=== PATIENT | female | born 1965 | race Caucasian/White ===

== ENCOUNTER 2021-11-12 11:12 | Outpatient (CLI) | payer OTHER, SELFPAY ==
[2021-11-12 12:26] LABS: Hematocrit 41.6 % (37-47); Mean Corp Hgb Conc 33.7 g/dL (32-36); Mean Corpuscular Hgb 32.4 pg (27.0-32.0); Mean Corpuscular Volume 96.3 fL (81-99); Mean Platelet Vol. 10.3 fl (6.2-12.0); Platelet Count 290 K/mm3 (150-450); RBC Distribution Width CV 12.6 % (11.6-14.6); RBC Distribution Width SD 44.9 fl (35.1-43.9); Red Blood Count 4.32 M/mm3 (4.2-5.4); White Blood Count 4.9 K/mm3 (4.4-11.0)
[2021-11-12 12:51] LABS: Vitamin D,25 Hydroxy 45.4 ng/mL
[2021-11-12 12:58] LABS: ALB/GLOB Ratio 1.2 RATIO (0.9-2.4); AST(SGOT) 16 U/L (15-37); Alanine Aminotransfer ALT/SGPT 21 U/L (13-56); Albumin, Serum 4.1 g/dL (3.2-5.0); Alkaline Phosphatase 82 U/L (45-117); Anion Gap 5 (5-15); BUN 14 mg/dL (7-18); BUN/Creat Ratio 17.4 RATIO (10-20); Chloride 106 mmol/L (98-107); Cholesterol 204 mg/dL (200); Creatinine, Serum 0.81 mg/dL (0.55-1.02); EST Glomerular Filtration Rate 78 mL/min (>60); Est Glom Filt Rate - Afr Amer 94 mL/min (>60); Globulin 3.4 g/dL (2.2-4.2); Glucose 88 mg/dL (74-106); High Density Lipoprotein 75 mg/dL; Potassium 3.5 mmol/L (3.5-5.1); Protein, Total 7.5 g/dL (6.4-8.2); Sodium Level 141 mmol/L (136-145); T4 Free Direct 1.32 ng/dL (0.76-1.46); Thyroid Stim Hormone (TSH) 6.09 uIU/mL (0.358-3.74); Triglycerides 119 mg/dL; Very Low Density Lipoprotein 24 mg/dL (5-40)
[2021-11-15 09:32] LABS: Free T3 2.1 pg/mL (2.18-3.98)
== END 2021-11-12 23:59 | disposition home or self-care (01) ==
LOC: MFPLAB 11:15
PROVIDERS: PCP Family Medicine; Referring Provider Family Medicine; Visit Provider Family Medicine
DX: I25.10 Atherosclerotic heart disease of native coronary artery without angina pectoris (principal); E03.9 Hypothyroidism, unspecified; E55.9 Vitamin D deficiency, unspecified
CPT/HCPCS: 36415; 80053; 80061; 82306; 84439; 84443; 84481; 85027

== ENCOUNTER → 2022-01-09 | Outpatient (CLI) | payer OTHER, SELFPAY ==
[2022-01-09 15:29] LABS: Free T3 2.2 pg/mL (2.18-3.98); T4 Free Direct 1.24 ng/dL (0.76-1.46); Thyroid Stim Hormone (TSH) 8.65 uIU/mL (0.358-3.74)
== END | disposition home or self-care (01) ==
LOC: MFPLAB 11:37
PROVIDERS: PCP Family Medicine; Referring Provider Family Medicine; Visit Provider Family Medicine
DX: I25.10 Atherosclerotic heart disease of native coronary artery without angina pectoris (principal); E03.9 Hypothyroidism, unspecified; E55.9 Vitamin D deficiency, unspecified
CPT/HCPCS: 36415; 84439; 84443; 84481

== ENCOUNTER → 2022-05-21 | Outpatient (CLI) | payer OTHER, SELFPAY ==
[2022-05-21 14:04] LABS: Mucous, Urine 0 SEEN /hpf (<or=2+); Red Blood Cells-Urine 0 SEEN /hpf (0-5); Squamous Epithelial Cells - UA 0 SEEN /hpf (5-10); White Blood Cells 0 SEEN /hpf (0-5)
[2022-05-21 15:40] LABS: Color, Urine Straw (Yellow); Glucose, Dipstick Normal (Normal); Ketone-Dipstick Negative (Negative); Leukocyte Esterase-Dipstick Negative /ul (Negative); Nitrite-Dipstick Negative (Negative); Occult Blood-Urine 10 /ul (Negative); Protein-Dipstick Negative (Negative); Urine Bilirubin Dipstick Negative (Negative); Urine Clarity Clear (Clear); Urine Urobilinogen Normal (Normal); Urine pH 6.5 (5.0 - 8.0)
[2022-05-21 15:57] LABS: Free T3 2.5 pg/mL (2.18-3.98); Thyroid Stim Hormone (TSH) 0.81 uIU/mL (0.358-3.74)
[2022-05-21 16:03] LABS: Bacteria RARE /hpf (None Seen)
== END | disposition home or self-care (01) ==
LOC: MFPLAB 12:08
PROVIDERS: PCP Family Medicine; Visit Provider Family Medicine
DX: R31.9 Hematuria, unspecified (principal); E03.9 Hypothyroidism, unspecified
CPT/HCPCS: 36415; 81001; 84439; 84443; 84481; 87086; 87088

== ENCOUNTER → 2022-06-16 | Outpatient (CLI) | payer OTHER, SELFPAY ==
[2022-06-23 14:49] LABS: HPV APTIMA, High Risk Negative (Negative)
[2022-06-23 14:50] LABS: HPV Reflexed? YES, CHARGE PATIENT
== END | disposition home or self-care (01) ==
LOC: LABSPEC 15:13
PROVIDERS: PCP Family Medicine; Visit Provider Nurse Practitioner Family
DX: Z12.4 Encounter for screening for malignant neoplasm of cervix (principal)
CPT/HCPCS: 87624; 88175; G0145

== ENCOUNTER → 2022-08-13 | Outpatient (CLI) | payer OTHER, SELFPAY ==
--- NOTE | 2022-08-13 08:53 | BI_ITS ---
MAMMOGRAPHY - BILATERAL SCREENING REASON FOR EXAM: Female, 57 years old. Routine annual screening examination. PERTINENT HISTORY: Sister with breast cancer. TECHNIQUE: Digital bilateral breast lavern (3D mammographic acquisition) in the CC and MLO projections. 2-D mediolateral oblique (MLO) and craniocaudad (CC) views of both breasts were obtained. CAD: Full Field Digital Mammography with Computer Added Detection was performed. COMPARISON: Bilateral screening mammogram from outside hospital from 10/11/2019. Left breast diagnostic mammogram from 06/06/2020. FINDINGS: Breast Composition: The breasts are heterogeneously dense, which may obscure small masses. There are no dominant masses or suspicious calcifications. No other significant abnormalities are identified. BI/SCRN MAMM (CAD)W/LAVERN BILAT IMPRESSION: Negative screening mammogram. Yearly followup mammogram recommended. (A) ASSESSMENT CATEGORY: BIRADS Category 1: Negative. A letter regarding these results will be sent to the patient by the facility within 30 days. Approximately 10% of breast cancers are not detected by mammography. A normal mammogram should not delay biopsy of a clinically suspicious abnormality. Electronically Signed: Chris Verde, at 14:37 EST ,
== END | disposition home or self-care (01) ==
LOC: OPBI 08:51
PROVIDERS: PCP Family Medicine; Visit Provider Family Medicine
DX: Z12.31 Encounter for screening mammogram for malignant neoplasm of breast (principal); Z80.3 Family history of malignant neoplasm of breast
CPT/HCPCS: 77063; 77067

== ENCOUNTER → 2022-12-05 | Outpatient (CLI) | payer OTHER, SELFPAY ==
[2022-12-05 10:31] LABS: BNP,B-Type NATRIURETIC PEPTIDE 26.6 pg/mL (0-100)
[2022-12-05 10:41] LABS: ALB/GLOB Ratio 1.2 RATIO (0.9-2.4); AST(SGOT) 15 U/L (15-37); Alanine Aminotransfer ALT/SGPT 26 U/L (13-56); Albumin, Serum 3.9 g/dL (3.2-5.0); Alkaline Phosphatase 96 U/L (45-117); Anion Gap 9 (5-15); BUN 23 mg/dL (7-18); BUN/Creat Ratio 32.5 RATIO (10-20); Calcium,Total 9.4 mg/dL (8.5-10.1); Chloride 106 mmol/L (98-107); Cholesterol 244 mg/dL (200); Creatinine, Serum 0.71 mg/dL (0.55-1.02); EST Glomerular Filtration Rate 90 mL/min (>60); Est Glom Filt Rate - Afr Amer 109 mL/min (>60); Globulin 3.3 g/dL (2.2-4.2); Glucose 95 mg/dL (74-106); High Density Lipoprotein 72 mg/dL; Potassium 3.6 mmol/L (3.5-5.1); Protein, Total 7.2 g/dL (6.4-8.2); Sodium Level 140 mmol/L (136-145); T4 Free Direct 1.37 ng/dL (0.76-1.46); Thyroid Stim Hormone (TSH) 1.58 uIU/mL (0.358-3.74); Triglycerides 68 mg/dL; Very Low Density Lipoprotein 14 mg/dL (5-40)
== END | disposition home or self-care (01) ==
LOC: MFPLAB 08:10
PROVIDERS: PCP Family Medicine; Referring Provider Family Medicine; Visit Provider Family Medicine
DX: E78.5 Hyperlipidemia, unspecified (principal); R06.09 Other forms of dyspnea; E03.9 Hypothyroidism, unspecified
CPT/HCPCS: 36415; 80053; 80061; 83880; 84439; 84443

== ENCOUNTER → 2022-12-30 | Outpatient (CLI) | payer OTHER, SELFPAY ==
--- NOTE | 2022-12-30 12:37 | STRESSREP_ITS ---
Stress Test Report Date: 12/30/2022 Procedure: Exercise tolerance test/imaging study Indications: Dyspnea on exertion Consent: Per the patient Procedure: The patient exercised on a Garcia protocol for 6 minutes and 10 seconds achieving a peak heart rate of 133 bpm (82% predicted maximal heart rate) with a peak blood pressure 174/9 mmHg and a peak MET capacity of 7.5 METs. The baseline ECG demonstrated normal sinus rhythm. The peak exercise ECG demonstrated no ischemic changes. There were no cardiac dysrhythmias pretest, during exercise, or recovery. The functional capacity was considered suboptimal. There was complaint of chest tightness at peak exercise. The examination was discontinued secondary to target heart rate being achieved. The patient was injected with 11.7 mCi of technetium 99m Cardiolite and subsequently rest SPECT Cardiolite nuclear imaging was obtained in the horizontal long, vertical long, and short axis views. Post-exercise, the patient was injected with 32.6 mCi of technetium 99m Cardiolite and subsequently stress SPECT Cardiolite nuclear imaging was obtained in the horizontal long, vertical long, and short axis views. A gated Cardiolite study at peak stress was obtained. Rest and stress SPECT Cardiolite nuclear imaging status post realignment, normalization, and attenuation correction, demonstrates very small area of mildly decreased perfusion poststress. There is end systolic thickening and brightening. The gated Cardiolite study demonstrates myocardial thickening and inward wall motion. The reported LVEF is 69%. Impression: 1. 82% of maximum predicted heart rate achieved. 2. Peak exercise ECG no ischemic changes 3. There were no cardiac dysrhythmias pretest, during exercise, or recovery 4. Rest and stress SPECT Cardiolite nuclear imaging demonstrate small area of mildly decreased tracer uptake at the apex post exercise suggestive of mild ischemia. 5. The gated Cardiolite study reports an LVEF of 69%. This note was generated with [employer] software. It may contain incorrect words, spelling, and punctuation that were not noted in checking the note before signing.
== END | disposition home or self-care (01) ==
PROVIDERS: PCP Family Medicine; Referring Provider Family Medicine; Visit Provider Family Medicine
DX: R06.09 Other forms of dyspnea (principal)
CPT/HCPCS: 78452; 93017; A9500; A4216

== ENCOUNTER → 2023-01-13 | Outpatient (CLI) | payer OTHER, SELFPAY ==
--- NOTE | 2023-01-13 10:49 | ECHOD_ITS ---
Reason For Study: CAD/ASHD Procedure This was a 2D Doppler, Color Flow transthoracic echocardiogram. Exam performed in department. Left Ventricle Normal LV size. The left ventricular ejection fraction is 55 %. Diastolic function is indeterminate. No regional wall motion abnormalities noted. Right Ventricle Normal RV size. Normal systolic function. Atria The left and right atria are normal. Mitral Valve Mild focal mitral valve calcification of the posterior leaflet. Moderate (2+) mitral valve insufficiency. Tricuspid Valve Normal tricuspid valve. Pulmonary artery systolic pressure is 43 mmHg. Moderately severe (3+) tricuspid valve insufficiency. Aortic Valve Mild focal aortic valve calcification. There is no aortic stenosis. Mild (1+) aortic valve insufficiency. Pulmonic Valve The pulmonic valve is not well visualized. Great Vessels Normal aortic root. Pericardium/Pleural No pericardial effusion. MMode/2D Measurements & Calculations LVIDd: 4.7 cm IVSd: 0.91 cm Ao root diam: 3.5 cm LVIDs: 3.2 cm LVPWd: 1.0 cm RVDd: 3.9 cm FS: 32.9 % LAV(MOD-bp): 47.9 ml LVAd ap4: 25.6 cm2 SV(MOD-sp4): 45.2 ml LAV(MOD-bp) Indexed: 25.1 ml/m2 LVLd ap4: 6.8 cm LAV(MOD-sp2): 49.8 ml EDV(MOD-sp4): 78.7 ml LAV(MOD-sp4): 46.8 ml EDV(sp4-el): 80.9 ml LVAs ap4: 14.9 cm2 LVLs ap4: 5.6 cm ESV(MOD-sp4): 33.5 ml ESV(sp4-el): 33.8 ml EF(MOD-sp4): 57.5 % EF(sp4-el): 58.3 % SV(sp4-el): 47.2 ml LA A4 area: 16.9 cm2 LA dimension(2D): 3.7 cm RA A4 area: 14.5 cm2 Time Measurements MV dec time: 0.12 sec Doppler Measurements & Calculations MV E max haja: 79.6 cm/sec Lat Peak E' Haja: 8.2 cm/sec Med Peak E' Haja: 5.6 cm/sec MV A max haja: 75.3 cm/sec E/E' lat: 9.7 E/E' med: 14.1 MV E/A: 1.1 MV V2 max: 86.2 cm/sec Ao V2 max: 138.5 cm/sec MV max P.0 mmHg MV dec slope: 663.6 cm/sec2 Ao max P.7 mmHg MV V2 mean: 42.5 cm/sec Ao V2 mean: 95.8 cm/sec MV mean P.96 mmHg Ao mean P.1 mmHg MV V2 VTI: 32.3 cm Ao V2 VTI: 34.5 cm AV (velocity ratio): 0.74 LV V1 max: 101.6 cm/sec TR max haja: 314.4 cm/sec LV V1 max P.1 mmHg TR max P.5 mmHg LV V1 mean P.4 mmHg LV V1 mean: 72.8 cm/sec LV V1 VTI: 25.6 cm ECHO/Echo Complete Interpretation Summary The left ventricular ejection fraction is 55 %. Moderate (2+) mitral valve insufficiency. Moderately severe (3+) tricuspid valve insufficiency. Pulmonary artery systolic pressure is 43 mmHg. Mild (1+) aortic valve insufficiency. Ordering Physician: Елена Bhat Referring Physician: Елена Bhat Performed By: Kenia Pereyra RCS
== END | disposition home or self-care (01) ==
PROVIDERS: PCP Family Medicine; Referring Provider Internal Medicine Cardiovascular Disease; Visit Provider Internal Medicine Cardiovascular Disease
DX: I25.10 Atherosclerotic heart disease of native coronary artery without angina pectoris (principal); Z95.5 Presence of coronary angioplasty implant and graft; I10 Essential (primary) hypertension
CPT/HCPCS: 93306

== ENCOUNTER 2023-05-11 11:35 | Observation (INO) | payer OTHER, SELFPAY ==
[2023-04-06 09:37] VITALS: BMI 29.8
--- NOTE | 2023-04-06 10:25 | RAD_ITS ---
INDICATION: SOB, CP -- for heart cath EXAMINATION/TECHNIQUE: X-RAY - XR Chest 2 Views COMPARISON: FINDINGS: LINES/DEVICES: None. LUNGS: No consolidation, edema or effusion. No pneumothorax. MEDIASTINUM AND CARDIOVASCULAR STRUCTURES: Cardiac silhouette not enlarged. Central airways and mediastinal contour are unremarkable. BONES AND SOFT TISSUES: Unremarkable. RAD/Chest PA and Lateral IMPRESSION: No radiographic evidence of acute cardiopulmonary disease. Electronically Signed: Wero Holcomb, at 10:48 EDT ,
[2023-04-06 10:57] LABS: Hematocrit 40.3 % (37-47); Hemoglobin 13.5 g/dL (12.0-15.0); Mean Corp Hgb Conc 33.5 g/dL (32-36); Mean Corpuscular Volume 95.5 fL (81-99); Mean Platelet Vol. 10.4 fl (6.2-12.0); Platelet Count 278 K/mm3 (150-450); RBC Distribution Width CV 13.1 % (11.6-14.6); RBC Distribution Width SD 45.8 fl (35.1-43.9); Red Blood Count 4.22 M/mm3 (4.2-5.4)
[2023-04-06 11:03] LABS: Prothrombin Time (Protime)PT. 12.7 SECONDS (11.7-14.9)
[2023-04-06 11:04] LABS: Partial Thromboplast Time 30.5 Seconds (24.1-36.2)
[2023-04-06 11:19] LABS: Anion Gap 2 (5-15); BUN 19 mg/dL (7-18); Calcium,Total 9.4 mg/dL (8.5-10.1); Chloride 109 mmol/L (98-107); Creatinine, Serum 0.73 mg/dL (0.55-1.02); EST Glomerular Filtration Rate 87 mL/min (>60); Est Glom Filt Rate - Afr Amer 105 mL/min (>60); Estimated Creatinine Clearance 78.64 ml/min; Glucose 103 mg/dL (74-106); Potassium 3.6 mmol/L (3.5-5.1); Sodium Level 140 mmol/L (136-145)
--- NOTE | 2023-05-08 08:26 | HP.PCM_ITS ---
History and Physical Date of Admission: 05/11/23 This is a 57 year old female who presents to the cardiac [facility] for a cardiac catheterization. She has a history of coronary artery disease with stent placement in 2004, hypertension, and hyperlipidemia. She does acknowledge angina, and shortness of breath with exertion. Her stress test from December of this year demonstrated a small area of mildly decreased tracer uptake at the apex post exercise suggestive of mild ischemia. Intake Vital Signs See EMR Allergies See EMR Medications See EMR Ejection fraction %: 55 to 59 PFSH Medical History Abnormal stress test Atherosclerotic heart disease of [place] coronary artery without angina pectoris Essential hypertension Hypothyroidism Mixed hyperlipidemia Non-rheumatic aortic regurgitation Non-rheumatic mitral regurgitation Non-rheumatic tricuspid valve insufficiency Presence of stent in coronary artery (~06/21/05) SOB (shortness of breath) Surgical History Presence of coronary angioplasty implant and graft (~06/21/05) Family History Mother CAD (coronary artery disease)Father CAD (coronary artery disease)Sister CAD (coronary artery disease) Social History Smoking Status: Never smoker alcohol intake: never substance use type: does not use caffeine: Yes Type: coffee Number of servings: 2 ROS Const Const: Positive for daytime sleepiness, difficulty sleeping and other; Negative for fatigue, weakness, headache(s), frequent falls or excessive sweating Eyes Eyes: Positive for blurry vision (floaties and change in peripheral vision ); Negative for loss of peripheral vision, transient loss of vision, double vision or tunnel vision ENT ENT: Negative for headache(s), dizziness, Nosebleed/epistaxis or balance problems Cardio Chest Pain: No Palpitations: No Edema: Bilateral (hands and ankles) Muscle aches with walking: None Resp Respiratory: Positive for SOB with activity (better but still there); Negative for SOB at rest, SOB orthopnea\SOB lying down, Cough or paroxysmal nocturnal dyspnea GI GI: Positive for heartburn (increased); Negative nausea, vomiting or black,tarry stools : Negative for hematuria Musc Musc: Positive for joint pain (a lot); Negative for muscle aches/ myalgia, muscle weakness or balance problems Skin Skin: Negative non-healing lesions, rash or unusual bruising Neuro Neuro: Positive for blurry vision (floaties and change in peripheral vision ); Negative for dizziness, lightheadedness, near syncope, syncope, frequent falls, headache(s), weakness, double vision or lack of coordination Ralph Hematologic/Lymphatic: Negative for easy bleeding or easy bruising Endo Endo: Negative for fatigue, excessive sweating or increased thirst/drinking Psych Psych: Negative for anxiety or depression Allergy Allergy/Immunology: Negative for hives and Negative for rash Cardiology Exam Const Appearance: comfortable and no acute distress Nutritional Appearance: well nourished Neck Neck: no JVD Carotids: Negative bruit Chest Auscultation: Bilateral: Clear to Auscultation Cardio Rate: regular rate Rhythm: regular rhythm Heart sounds: S1 normal, S2 normal and murmur (2/6 systolic murmur at base) Neuro General: patient alert, patient awake and patient oriented x3 Extremities Lower Extremity Edema: None: Bilateral Supplemental Info Supplemental Information ECHOCARDIOGRAM 01/13/23 Interpretation Summary The left ventricular ejection fraction is 55 %. Moderate (2+) mitral valve insufficiency. Moderately severe (3+) tricuspid valve insufficiency. Pulmonary artery systolic pressure is 43 mmHg. Mild (1+) aortic valve insufficiency. ? ? Stress Test Report: Date: 12/30/2022 Procedure: Exercise tolerance test/imaging study ? Indications: Dyspnea on exertion ? Consent: Per the patient ? Procedure: ? The patient exercised on a Garcia protocol for 6 minutes and 10 seconds achieving a peak heart rate of 133 bpm (82% predicted maximal heart rate) with a peak blood pressure 174/9 mmHg and a peak MET capacity of 7.5 METs. ? The baseline ECG demonstrated normal sinus rhythm.? The peak exercise ECG demonstrated no ischemic changes. ? There were no cardiac dysrhythmias pretest, during exercise, or recovery.? ? The functional capacity was considered suboptimal. ? There was complaint of chest tightness at peak exercise. ? The examination was discontinued secondary to target heart rate being achieved. ? The patient was injected with 11.7 mCi of technetium 99m Cardiolite and subsequently rest SPECT Cardiolite nuclear imaging was obtained in the horizontal long, vertical long, and short axis views. Post-exercise, the patient was injected with 32.6 mCi of technetium 99m Cardiolite and subsequently stress SPECT Cardiolite nuclear imaging was obtained in the horizontal long, vertical long, and short axis views.? A gated Cardiolite study at peak stress was obtained. ? Rest and stress SPECT Cardiolite nuclear imaging status post realignment, normalization, and attenuation correction, demonstrates very small area of mildly decreased perfusion poststress.? There is end systolic thickening and brightening.? The gated Cardiolite study demonstrates myocardial thickening and inward wall motion.? The reported LVEF is 69%. ? Impression: ? 1.? 82% of maximum predicted heart rate achieved. 2.? Peak exercise ECG no ischemic changes 3.? There were no cardiac dysrhythmias pretest, during exercise, or recovery 4.? Rest and stress SPECT Cardiolite nuclear imaging demonstrate small area of mildly decreased tracer uptake at the apex post exercise suggestive of mild ischemia. 5.? The gated Cardiolite study reports an LVEF of 69%. ? 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 Her stress test from 12/2022 was abnormal. With her history of coronary artery disease, will proceed with cardiac catheterization to further assess this. Depending on results, further recommendations will be made. (2) Presence of stent in coronary artery: Status: Acute Comment: PCI/MELVIN to mid and Proximal RCA @ [facility] 06/21/05 Plan: See #1 above. (3) Coronary artery disease: Status: Chronic Plan: History of inferior MO. See #1 and 2 above.
[2023-05-08 10:20] LABS: Hematocrit 42.1 % (37-47); Mean Corp Hgb Conc 33.3 g/dL (32-36); Mean Corpuscular Volume 96.3 fL (81-99); Mean Platelet Vol. 10.4 fl (6.2-12.0); Platelet Count 263 K/mm3 (150-450); RBC Distribution Width SD 45.8 fl (35.1-43.9); Red Blood Count 4.37 M/mm3 (4.2-5.4); White Blood Count 4.8 K/mm3 (4.4-11.0)
[2023-05-08 10:59] LABS: AST(SGOT) 14 U/L (15-37); Alanine Aminotransfer ALT/SGPT 23 U/L (13-56); Albumin, Serum 3.8 g/dL (3.2-5.0); Alkaline Phosphatase 72 U/L (45-117); Anion Gap 5 (5-15); BUN 20 mg/dL (7-18); BUN/Creat Ratio 26.4 RATIO (10-20); Bilirubin, Direct 0.13 mg/dL (0.00-0.30); Calcium,Total 9.4 mg/dL (8.5-10.1); Chloride 109 mmol/L (98-107); Cholesterol 155 mg/dL (200); Creatinine, Serum 0.76 mg/dL (0.55-1.02); EST Glomerular Filtration Rate 83 mL/min (>60); Est Glom Filt Rate - Afr Amer 101 mL/min (>60); Estimated Creatinine Clearance 75.53 ml/min; Globulin 3.2 g/dL (2.2-4.2); Glucose 93 mg/dL (74-106); High Density Lipoprotein 70 mg/dL; Potassium 3.5 mmol/L (3.5-5.1); Sodium Level 140 mmol/L (136-145); Triglycerides 72 mg/dL; Very Low Density Lipoprotein 14 mg/dL (5-40)
[2023-05-08 11:07] LABS: T4 Free Direct 1.54 ng/dL (0.76-1.46); Thyroid Stim Hormone (TSH) 0.29 uIU/mL (0.358-3.74)
[2023-05-11] VITALS (17 sets, daily range): BP systolic 108–164; BP diastolic 67–100; PULSE 54–78; RESP 16–18; TEMP 36.6–36.8; O2SAT 96–100
--- NOTE | 2023-05-11 11:42 | PCM.DC ---
Discharge Instructions Diet Discharge Diet: Low fat / Low cholesterol Activity Discharge Activity: No Restrictions Dressing / Incision Call your doctor if your incision/area has: Continuous Slow Oozing, Sudden Increased Bleeding, Increased Pain/ Swelling, Increased Redness, Foul Smelling Discharge and Swelling at the incision site Call your doctor if you observe: Fever of 101 or Higher, Coldness, Increased Pain and Change in Color Follow Up Care Please Follow Up With: Елена Bhat MD When: 2 weeks Test Results: Test results from this visit will be discussed in further detail at your follow-up appointment, if applicable. Discharge Plan Admission Attending Provider: Елена Bhat Primary Care Provider: Juan F Tay Discharge Orders/Prescriptions Prescriptions: New clopidogrel 75 mg Tablet 75 mg PO DAILY Qty: 90 3RF Continued levothyroxine 100 mcg tablet 100 mcg PO DAILY hydrochlorothiazide 25 mg tablet 25 mg PO DAILY amlodipine 10 mg tablet 10 mg PO DAILY lisinopril 10 mg tablet 10 mg PO DAILY naproxen 500 mg tablet 500 mg PO BID fluticasone propionate [Flonase Allergy Relief] 50 mcg/actuation spray,suspension 2 spray intranasal BID Rx Instructions: administer into each nostril aspirin [Adult Low Dose Aspirin] 81 mg tablet,delayed release (DR/EC) 81 mg PO DAILY magnesium oxide 500 mg capsule 500 mg PO DAILY black cohosh 200 mg capsule 200 mg PO DAILY cholecalciferol (vitamin D3) 50 mcg (2,000 unit) tablet 50 mcg PO DAILY metoprolol tartrate 100 mg tablet 100 mg PO BID Qty: 180 3RF nitroglycerin 0.4 mg tablet, sublingual 0.4 mg sublingual Q5-15M PRN (Reason: chest pain) Qty: 25 1RF Rx Instructions: do not exceed 3 doses per episode atorvastatin 20 mg tablet 20 mg PO QHS Qty: 90 3RF Praluent Pen 150 mg/mL pen injector See Rx Instructions .ROUTE .COMPLEX Qty: 2 12RF Dose Instruction: INJECT 150 MG SUBCUTANEOUSLY EVERY 4 WEEKS Rx Instructions: INJECT 150 MG SUBCUTANEOUSLY EVERY 4 WEEKS Referrals / Follow Up: Juan F Tay MD [Primary Care Provider] - Disposition Disposition (needs filled in before D/C Order can be placed): Home, Self Care
--- NOTE | 2023-05-11 12:02 | CL.I_ITS ---
Patient Name: AUTUMN VAZQUEZ Study Date: 05/11/2023 Performing: Елена Bhat MD Ht: 66 inches 167.64 cm : 1965 Wt: 185.2 lbs 83.91 kg Age: 57 Gender: female BSA: 1.93 PROCEDURE(S) PERFORMED DC02-(36978)LHC/COR IC12-(98392/C9600)MELVIN W/WO PTCA, SINGLE CORONARY ARTERY CLINICAL PROFILE AND CO-MORBIDITIES Indications: Worsening Angina Heart Failure: None Stress/Imaging Stress Test w/SPECT MPI: Yes Result: Positive Intermediate Risk Stress Test with SPECT MPI: Positive Intermediate Risk CAD Presentations: Other: Dyspnea - angina equivalent CONCLUSIONS 95% Prox RCA ISR, 90% Mid RCA ISR, 50% distal RCA ISR 80% distal OM1 - small 2.0 mm vessel 70% Prox OM2, small 1.5 mm vessel 50% Calcific Prox and Mid LAD Successful PTCA/MELVIN Mid RCA ISR using Resolute Medina 3.0x22 mm Successful PTCA/MELVIN ISR Prox RCA using Resolute Medina 3.0x12 mm RECOMMENDATIONS ASA Indefinitley Plavix for at least 12 months DESCRIPTION OF PROCEDURE The patient arrived to the procedure lab. The risks and benefits of the procedure as well as a full description of our services here and lack of surgical backup were fully explained to the patient and/or their significant other prior to the catheterization. The Timeout was completed, verifying the correct patient and procedure. The patient's procedural site was prepped and draped in the usual fashion. Local anesthetic was given subcutaneously to right radial region with Lidocaine 2%. Using a modified Seldinger technique, arterial access was obtained via the right radial artery, a 6Fr sheath was inserted.. Left Coronary Artery selective angiography was performed in multiple views using a 5 Fr. 4.0 Matlock catheter. Right Coronary Artery selective angiography was then performed in multiple views using a 5 Fr. 4.0 Matlock catheterThe images were reviewed and options discussed. A decision was then made to proceed with an Intervention, IVUS or other adjunct procedure. JR 4 SH Guide catheter was inserted and engaged into the RCA. Runthrough Guide wire was advanced to the RCA. 2.5 x 15 Euphora SC Balloon catheter was inserted. Balloon catheter was advanced across lesion in the right coronary, mid. PTCA balloon inflated at 10 atms for 10 secs. Balloon catheter was repositioned to additional lesion in the right coronary, proximal. PTCA balloon inflated at 8 atms for 10 secs. PTCA balloon inflated at 16 atms for 30 secs. 3.0 x 22 Redby Drug Eluting stent was inserted. Drug Eluting stent was advanced across the lesion in the right coronary, mid. Drug Eluting stent was removed intact, failed to cross lesion 2.5 x 12 NC Euphora Balloon catheter was inserted. Balloon catheter was advanced across lesion in the right coronary, mid. 2.5 x 12 NC Euphora Balloon catheter was reinserted CHOICE EXTRA SUPPORT Guide wire was inserted as a aleksandr wire 2.5 X 12 EUPHORA Balloon catheter was advanced across lesion in the right coronary, mid. PTCA balloon inflated at 10 atms for 7 secs. PTCA balloon inflated at 10 atms for 7 secs. PTCA balloon inflated at 12 atms for 12 secs. PTCA balloon inflated at 14 atms for 11 secs. PTCA balloon inflated at 14 atms for 17 secs. 2.5 X 12 NC EUPHORA Balloon catheter was advanced across lesion in the right coronary, mid. PTCA balloon inflated at 18 atms for 15 secs. PTCA balloon inflated at 20 atms for 22 secs. 3.0 X 22 MEDINA Drug Eluting stent was advanced across the lesion in the right coronary, mid. 3 X 12 NC EUPHORA Balloon catheter was inserted post stent. 3.0 X 12 RESOLUTE MEDINA Drug Eluting stent was advanced across the lesion in the right coronary, PROX. Angiogram performed pre stent deployment. Angiogram performed post stent deployment. 3 X 12 NC EUPHORA Balloon catheter was inserted post stent. Angiogram performed post stent deployment. The arterial sheath was pulled and a TR Band was applied for hemostasis. 10cc air inserted.0 CORONARY ANGIOGRAPHY DOMINANCE: Right Dominant LEFT ANTERIOR DESCENDING ARTERY: LAD: Calcified 50% Proximal lesion in LAD Calcified 50% Mid lesion in LAD CIRCUMFLEX ARTERY: CIRCUMFLEX: Calcified 20% Mid lesion in Circumflex OM 1: Tubular 80% Mid lesion in 1st OM OM 2: Tubular 70% Proximal lesion in 2nd OM RIGHT CORONARY ARTERY: RCA: In-Stent Restenosis 95% Proximal lesion in RCA, STENT to 95% In-Stent Restenosis 90% Mid lesion in RCA INTERVENTION INFORMATION LESION SITE: RCA (Mid) Lesion Complexity: High/C, lesion length: 20 mm, In-stent restenosis: Yes Pre Stenosis: 90 % Pre intervention NIMCO flow: 3 PROCEDURE: Drug Eluting Stent with pre and post dilatation Post Stenosis: 0 % Post intervention NIMCO flow: 3 Lesion Devices: Medtronic 6 Fr JR4.0 SH 100cm Guide Catheter Terumo .014 180cm Runthrough Extra Floppy straight Medtronic SC EUPHORA RX 2.5x15 BALLOON Medtronic Resolute [place] RX MELVIN 3.0x22 Medtronic NC EUPHORA RX 2.5x12 BALLOON Vascular Solutions 6 Swedish GuideLiner Jc Sci .014 182cm Choice Xtra Support wire Medtronic SC EUPHORA RX 2.5x12 BALLOON Medtronic NC EUPHORA RX 3.0x12 BALLOON LESION SITE: RCA (Proximal) Lesion Complexity: Non-High/Non-C, In-stent restenosis: Yes, lesion length: 10 mm Pre Stenosis: 95 % Pre intervention NIMCO flow: 3 Post Stenosis: 0 % Post intervention NIMCO flow: 3 Lesion Devices: Medtronic 6 Fr JR4.0 SH 100cm Guide Catheter Terumo .014 180cm Runthrough Extra Floppy straight Vascular Solutions 6 Swedish GuideLiner Medtronic Resolute [place] RX MELVIN 3.0x12 Medtronic NC EUPHORA RX 3.0x12 BALLOON COMPLICATIONS No Complications PROCEDURE MEDICATIONS Fentanyl 50 mcg IV Versed 1 mg IV Oxygen: 2 L/min via nasal cannula Brilinta 180 mg PO @ 05/11/2023 10:39:03 Heparin given IA 05/11/2023 10:29:55 Heparin 6000 unit(s) IV 05/11/2023 10:38:57 Verapamil 2.5mg, Ntg 200mcgs, 2000 units of Heparin given IA 05/11/2023 10:29:55 SUMMARY OF HEMODYNAMIC DATA Time AIR REST ECG 08:31:18 AO 121/71 (90) SA 10:33:08 Signed By Елена Bhat MD On 05/11/2023 12:02:05 Елена Bhat MD
[2023-05-11] MEDS: hydroCHLOROthiazide 25 MG Tablet PO (13:01)
[2023-05-11] MEDS: 0.9% Saline Lock 10 ML Syringe IV (13:02)
[2023-05-11] MEDS: 0.9% Normal Saline 1,000 ML 150 ML IV (13:02)
--- NOTE | 2023-05-11 14:01 | CRPHASE1 ---
Patient Communication Patient Information Former Patient:: Phase I and Phase II PHII Cardiac Rehab Discussed with Patient:: Yes Guide to Cardiac Rehab Given to Patient:: Yes Cardiac Rehab Facility Choice List Given to Patient:: Yes Communication to Cardiac Rehab Cemetery Manager:: Елена Bhat Refer Phase II Cardiac Rehab:: Yes Medical/Surgical History Medical History OR:: Yes Angina:: Yes CAD:: Yes Congestive Heart Failure: Cardiomyopathy:: No Valve Disease/Replacement:: Yes Pulmonary:: Yes COPD:: No Asthma:: No Diabetes:: No Diabetes Type I:: No Diabetes Type II:: No Hypertension:: Yes Dyslipidemia:: Yes CVA/TIA: Surgical History CABG: No ICD:: No Pacemaker:: No Cardiac Rehabilitation Info Program Information Cardiac Rehabilitation Program Information: Cardiac Rehab The cardiac rehab team at [facility] consists of highly skilled exercise physiologists, nurses, respiratory therapists and physicians working together with you. Our purpose is to help you have a full recovery and achieve the goals you set for yourself. Over the years many of our patients have returned to activities they assumed they would never do again! We can help restore your confidence and motivation to make lifestyle changes that can have a significant impact on your health and quality of life! We can help answer questions and concerns you may have about exercise, lifestyle, medications, diet, stress and anxiety which are common following a hospitalization. WE monitor ECG and vital signs during exercise and discuss your progress with you and report to your physician(s). Cardiac Rehab is proven to help reduce readmissions, improve functional capacity and lower recurrence of problems with your heart. Our Cardiac Rehab program is Certified by the [place] [employer]-Vascular and Pulmonary [employer] (AACVPR) and Accredited by the [place] [employer] through our [facility]. You can contact us at . We invite you to call us with your questions or to get started in our program. If you have other questions or concerns be sure to ask your physician/provider during your follow-up visit. WE look forward to seeing you!
--- NOTE | 2023-05-11 14:03 | CRPH1.INSTRU ---
General Education Discussed with Patient CAD and cardiac anatomy and function:: Patient communicates acknowledgment Explanation of diagnoses and procedures:: Patient communicates acknowledgment Sign/Symptoms of [place]:: Patient communicates acknowledgment Antiplatelet therapy: Patient communicates acknowledgment Proper use of NTG-SL: Patient communicates acknowledgment Emergency procedures and activation of EMS: Patient communicates acknowledgment Compliance of all prescribed medications: Patient communicates acknowledgment Smoking Risk Factors Patient Nicotine/Smoking Risk Factors Are:: Non-smoker Recommendations Recommendations Include:: Second-hand smoke recommendation and Previous smoker; encourage continued cessation Response Code Nicotine/Smoking Response Code:: Patient communicates acknowledgment Dyslipidemia Recommendations Recommendations Include:: Lipid profile not available Response Code Dyslipidemia Response Code:: Patient communicates acknowledgment Overweight/Obesity Risk Factors Patient Overweight/Obesity Risk Factors Are:: BMI Normal [24-29 & > 65 years old] Recommendations Recommendations Include:: Exercise 5-7 times/week Response Code Overweight/Obesity:: Patient communicates acknowledgment Hypertension Recommendations Recommendations Include:: Maintain BP <130/85 Response Code Hypertension:: Patient communicates acknowledgment Heart Disease Risk Factors Patient Heart Disease Risk Factors Are:: Previous cardiac event Recommendations Recommendations Include:: Educated family members of their risk Response Code Heart Disease Response Code:: Patient communicates acknowledgment Diabetes Risk Factors Patient Diabetes Risk Factors Are:: No documented hx of diabetes Response Code Diabetes:: Patient communicates acknowledgment Metabolic Syndrome Recommendations Recommendations Include:: Does not meet criteria Sedentary Recommendations Recommendations Include:: Benefits of regular exercise, Discussed home walking program and Monitored Outpatient Cardiac Rehab Response Code Sedentary Response Code:: Patient communicates acknowledgment Stress Recommendations Recommendations Include:: Identification of stressors, and assessment of coping skills Response Code Stress Response Code:: Patient communicates acknowledgment
[2023-05-11] MEDS: Clopidogrel Bisulfate 300 MG Tablet PO (18:20)
[2023-05-11] MEDS: Metoprolol Tartrate 100 MG Tablet PO (22:22)
[2023-05-11] MEDS: Naproxen 500 MG Tablet PO (22:22)
[2023-05-11] MEDS: Atorvastatin Calcium 20 MG Tablet PO (22:22)
[2023-05-12 04:18] VITALS: BP 124/64; PULSE 60; RESP 16; TEMP 36.6; O2SAT 98
--- NOTE | 2023-05-12 05:37 | EKG12_ITS ---
Test Reason : AM EKG Blood Pressure : / mmHG Vent. Rate : 056 BPM Atrial Rate : 056 BPM P-R Int : 158 ms QRS Dur : 082 ms QT Int : 458 ms P-R-T Axes : 022 006 046 degrees QTc Int : 441 ms Sinus bradycardia Possible Inferior infarct , age undetermined Abnormal ECG When compared with ECG of 11-MAY-2023 12:56, MANUAL COMPARISON REQUIRED, DATA IS UNCONFIRMED Confirmed by FRANK MORTENSEN, ERICKSON ([id number]), acquisitions editor MISTI GREEN ([id number]) on 07/01/2023 10:29:35 AM Referred By: лЕена Bhat Confirmed By:ERICKSON MARIE MD
[2023-05-12] MEDS: Levothyroxine 100 MCG Tablet PO (06:41)
[2023-05-12 06:50] LABS: Hematocrit 41.5 % (37-47); Hemoglobin 13.4 g/dL (12.0-15.0); Mean Corp Hgb Conc 32.3 g/dL (32-36); Mean Corpuscular Hgb 31.2 pg (27.0-32.0); Mean Corpuscular Volume 96.7 fL (81-99); Mean Platelet Vol. 10.6 fl (6.2-12.0); Platelet Count 237 K/mm3 (150-450); RBC Distribution Width CV 13.1 % (11.6-14.6); RBC Distribution Width SD 46.8 fl (35.1-43.9); Red Blood Count 4.29 M/mm3 (4.2-5.4)
[2023-05-12 07:00] VITALS: O2SAT 96
[2023-05-12 07:25] LABS: ALB/GLOB Ratio 1.2 RATIO (0.9-2.4); AST(SGOT) 12 U/L (15-37); Alanine Aminotransfer ALT/SGPT 21 U/L (13-56); Albumin, Serum 3.5 g/dL (3.2-5.0); Alkaline Phosphatase 69 U/L (45-117); Anion Gap 4 (5-15); BUN 15 mg/dL (7-18); BUN/Creat Ratio 20.9 RATIO (10-20); Calcium,Total 9.2 mg/dL (8.5-10.1); Chloride 112 mmol/L (98-107); Creatinine, Serum 0.72 mg/dL (0.55-1.02); EST Glomerular Filtration Rate 89 mL/min (>60); Est Glom Filt Rate - Afr Amer 107 mL/min (>60); Estimated Creatinine Clearance 73.55 ml/min; Glucose 91 mg/dL (74-106); Potassium 3.5 mmol/L (3.5-5.1); Protein, Total 6.5 g/dL (6.4-8.2); Sodium Level 140 mmol/L (136-145)
[2023-05-12 07:30] LABS: ACT Activated Clotting Time 305 sec (74-137)
[2023-05-12 07:32] LABS: ACT Activated Clotting Time 233 sec (74-137)
--- NOTE | 2023-05-12 09:43 | PHA.DC.MC.R ---
Pharmacy [facility] Pharmacy Service has performed discharge medication reconciliation and counseling for this patient. 1. CLOPIDOGREL 75MG PO DAILY The patient's discharge medication list was reviewed for discrepancies and discrepancies were resolved. The patient was counseled on the following discharge medications and changes in medications for homegoing were reviewed. The Reason for Use, instructions for use, and potential side effects were reviewed for all new medications. The patient's questions regarding all of their medications were answered. The patient was able to verbally demonstrate an understanding of their discharge medications. Patient counseled by pharmacy technology instructorLatha. Medications at Discharge Home Medications amlodipine 10 mg tablet 10 mg PO DAILY 01/02/23 aspirin 81 mg tablet,delayed release (Adult Low Dose Aspirin) 81 mg PO DAILY 01/02/23 black cohosh 200 mg capsule 200 mg PO DAILY 01/02/23 cholecalciferol (vitamin D3) 50 mcg (2,000 unit) tablet 50 mcg PO DAILY 01/02/23 fluticasone propionate 50 mcg/actuation nasal spray,suspension (Flonase Allergy Relief) 2 spray intranasal BID 01/02/23 hydrochlorothiazide 25 mg tablet 25 mg PO DAILY 01/02/23 levothyroxine 100 mcg tablet 100 mcg PO DAILY 01/02/23 lisinopril 10 mg tablet 10 mg PO DAILY 01/02/23 magnesium oxide 500 mg capsule 500 mg PO DAILY 01/02/23 naproxen 500 mg tablet 500 mg PO BID 01/02/23 atorvastatin 20 mg tablet 20 mg PO QHS #90 tabs 02/03/23 alirocumab 150 mg/mL subcutaneous pen injector (Praluent Pen) See Rx Instructions .Route .COMPLEX #2 mL 03/19/23 metoprolol tartrate 100 mg tablet 100 mg PO BID Dose increase #180 tabs 04/03/23 nitroglycerin 0.4 mg sublingual tablet 0.4 mg sublingual Q5-15M PRN chest pain #25 tabs 04/03/23 clopidogrel 75 mg tablet 75 mg PO DAILY #90 tabs 05/11/23
[2023-05-12 10:15] VITALS: BP 111/70; PULSE 70; RESP 18; TEMP 36.4; O2SAT 98
[2023-05-12 10:20] VITALS: BP 111/70; PULSE 70; RESP 18; TEMP 36.4; O2SAT 98
[2023-05-12] MEDS: Magnesium Chloride 64 MG Delay Rel.Tablet 128 MG PO (10:22)
[2023-05-12] MEDS: amLODIPine 10 MG Tablet PO (10:22)
[2023-05-12] MEDS: Naproxen 500 MG Tablet PO (10:22)
[2023-05-12] MEDS: hydroCHLOROthiazide 25 MG Tablet PO (10:22)
[2023-05-12] MEDS: Aspirin E.C. 81 MG Tablet PO (10:22)
[2023-05-12] MEDS: Clopidogrel Bisulfate 75 MG Tablet PO (10:22)
[2023-05-12 10:23] VITALS: PULSE 70
[2023-05-12] MEDS: Lisinopril 10 MG Tablet PO (10:23)
[2023-05-12] MEDS: Metoprolol Tartrate 100 MG Tablet PO (10:23)
[2023-05-12] MEDS: Cholecalciferol (VIT D3) 25 MCG TABLET (1,000 UNITS) 50 MCG PO (10:23)
== END 2023-05-12 10:00 | disposition home or self-care (01) ==
LOC: CLSP 11:43 → PCU 11:52
PROVIDERS: Admitting Provider Internal Medicine Cardiovascular Disease; PCP Family Medicine; Referring Provider Internal Medicine Cardiovascular Disease; Visit Provider Internal Medicine Cardiovascular Disease
DX: I25.119 Atherosclerotic heart disease of native coronary artery with unspecified angina pectoris (principal); E78.2 Mixed hyperlipidemia; I10 Essential (primary) hypertension; Z95.5 Presence of coronary angioplasty implant and graft; H53.8 Other visual disturbances
CPT/HCPCS: 36415; 71046; 80048; 80053; 80061; 80076; 84439; 84443; 85027; 85347; 85610; 85730; 92928; 93005; 93454; 96360; 96361; 99152; 99153; 99221; C1887; J7030; J7040; Q9967; A4216; C1725; C1769; C1874; C1894; C9600; G0378

== ENCOUNTER → 2023-05-20 | Outpatient (CLI) | payer OTHER, SELFPAY ==
--- NOTE | 2023-05-20 14:54 | ART_ITS ---
Reason For Study: Claudication Procedure A bilateral lower extremity continuous wave Doppler with analog waveform analysis,segmental pressures,and ankle brachial indexes with exercise. Left Segmental Pressures Left brachial= 137mmHg. Left thigh = 153mmHg. Left calf = 133mmHg. Left posterior tibial artery = 132mmHg. Left dorsalis pedis artery = 131mmHg. Left digit = 110 mmHg. The left dorsalis pedis waveforms are triphasic. The left posterior tibial artery waveforms are triphasic. Right Segmental Pressures Right brachial= 1.28mmHg. Right thigh = 114mmHg. Right calf = 99mmHg. Right posterior tibial artery = 92mmHg. Right dorsalis pedis artery = 90mmHg. Right digit = 79 mmHg. The right dorsalis pedis waveforms are monophasic. The right posterior tibial artery waveforms are biphasic. Indices The right ankle brachial index by the dorsalis pedis is 0.66. The right ankle brachial index by the posterior tibial artery is 0.67. The right digital-brachial index is 0.58. The right post exercise ankle brachial index is 0.37. The left ankle brachial index by the dorsalis pedis is 0.96. The left ankle brachial index by the posterior tibial artery is 0.96. The left digital-brachial index is 0.80. The left post exercise ankle brachial index is 0.88. VL/Lower Ext Art Exam w/ Exercise Interpretation Summary Right RALEIGH 0.67, moderate arterial insufficiency. Doppler/PVR waveforms and segm ental pressures reveal [id number]-dalav-[id number] femoral disease Right lower extremity with abnormal response to exercise and post exercise RALEIGH in the severe category. Left RALEIGH 0.96, mild arterial insufficiency. Doppler/PVR waveforms and segmental pressures reveal distal SFA/popliteal disease Left lower extremity exhibits no change in response to exercise. Ordering Physician: Juan F Tay Referring Physician: Juan F Tay Performed By: Lenore Iniguez RVT
== END | disposition home or self-care (01) ==
PROVIDERS: PCP Family Medicine; Referring Provider Family Medicine; Visit Provider Family Medicine
DX: I73.9 Peripheral vascular disease, unspecified (principal)
CPT/HCPCS: 93924

== ENCOUNTER → 2023-06-02 | Outpatient (CLI) | payer OTHER, SELFPAY ==
[2023-06-02 14:25] LABS: Hematocrit 41.8 % (37-47); Hemoglobin 13.7 g/dL (12.0-15.0); Mean Corp Hgb Conc 32.8 g/dL (32-36); Mean Corpuscular Hgb 31.9 pg (27.0-32.0); Mean Corpuscular Volume 97.2 fL (81-99); Mean Platelet Vol. 10.3 fl (6.2-12.0); Platelet Count 271 K/mm3 (150-450); RBC Distribution Width SD 46.1 fl (35.1-43.9); White Blood Count 4.8 K/mm3 (4.4-11.0)
[2023-06-02 14:48] LABS: Anion Gap 4 (5-15); BUN 21 mg/dL (7-18); BUN/Creat Ratio 23.5 RATIO (10-20); Calcium,Total 9.6 mg/dL (8.5-10.1); Chloride 108 mmol/L (98-107); EST Glomerular Filtration Rate 69 mL/min (>60); Est Glom Filt Rate - Afr Amer 83 mL/min (>60); Glucose 93 mg/dL (74-106); Potassium 3.9 mmol/L (3.5-5.1); Sodium Level 142 mmol/L (136-145)
== END | disposition home or self-care (01) ==
LOC: LAB 13:54
PROVIDERS: PCP Family Medicine; Referring Provider Internal Medicine Cardiovascular Disease; Visit Provider Internal Medicine Cardiovascular Disease
DX: I70.211 Atherosclerosis of native arteries of extremities with intermittent claudication, right leg (principal); I25.10 Atherosclerotic heart disease of native coronary artery without angina pectoris
CPT/HCPCS: 36415; 80048; 85027

== ENCOUNTER 2023-06-17 09:59 | Observation (INO) | payer OTHER, SELFPAY ==
[2023-06-16 09:13] VITALS: BMI 30.3
[2023-06-17] VITALS (14 sets, daily range): BP systolic 109–144; BP diastolic 62–84; PULSE 58–68; RESP 12–19; TEMP 36.4–37; O2SAT 95–99
--- NOTE | 2023-06-17 10:04 | DCINST_ITS ---
Discharge Instructions Diet Discharge Diet: Low fat / Low cholesterol Activity Discharge Activity: Return to Normal Activity May resume sexual activity in: No Restrictions Dressing / Incision Call your doctor if your incision/area has: Continuous Slow Oozing, Sudden Increased Bleeding, Increased Pain/ Swelling, Increased Redness, Foul Smelling Discharge and Swelling at the incision site Call your doctor if you observe: Fever of 101 or Higher, Coldness, Increased Pain and Change in Color Follow Up Care Please Follow Up With: Елена Bhat MD When: 2-4 weeks Test Results: Test results from this visit will be discussed in further detail at your follow- up appointment, if applicable. Discharge Plan Admission Admit Date/Time: 06/17/23 09:59 Attending Provider: Елена Bhat Primary Care Provider: Juan F Tay Discharge Orders/Prescriptions Prescriptions: No Action levothyroxine 100 mcg tablet 100 mcg PO DAILY hydrochlorothiazide 25 mg tablet 25 mg PO DAILY amlodipine 10 mg tablet 10 mg PO DAILY lisinopril 10 mg tablet 10 mg PO DAILY naproxen 500 mg tablet 500 mg PO BID fluticasone propionate [Flonase Allergy Relief] 50 mcg/actuation spray,suspension 2 spray intranasal BID Rx Instructions: administer into each nostril aspirin [Adult Low Dose Aspirin] 81 mg tablet,delayed release (DR/EC) 81 mg PO DAILY magnesium oxide 500 mg capsule 500 mg PO DAILY nitroglycerin 0.4 mg tablet, sublingual 0.4 mg sublingual Q5-15M PRN (Reason: chest pain) Qty: 25 1RF Rx Instructions: do not exceed 3 doses per episode metoprolol tartrate 50 mg tablet 50 mg PO BID Repatha Pushtronex 420 mg/3.5 mL wearable injector 420 mg subcut QMONTH Qty: 3.5 11RF clopidogrel 75 mg Tablet 75 mg PO DAILY Qty: 90 3RF atorvastatin 20 mg tablet 20 mg PO QHS Qty: 90 3RF Referrals / Follow Up: Juan F Tay MD [Primary Care Provider] - Disposition Disposition (needs filled in before D/C Order can be placed): Home, Self Care
--- NOTE | 2023-06-17 10:13 | CL.I_ITS ---
Patient Name: AUTUMN VAZQUEZ Study Date: 06/17/2023 Performing: Елена Bhat MD Ht: 66 inches 167.64 cm : 1965 Wt: 188.01 lbs 85.28 kg Age: 57 Gender: female BSA: 1.95 PROCEDURE(S) PERFORMED IC12-(11190/C9600)MELVIN W/WO PTCA, SINGLE CORONARY ARTERY CLINICAL PROFILE AND CO-MORBIDITIES Indications: Stable Known CAD Heart Failure: None CAD Presentations: Other: Dyspnea, likely angina equivalent CONCLUSIONS Successful MELVIN Mid OM1 using Resolute Hooper 2.25x26 mm, post-dilated using 2.5 mm balloon, optimized proximally using 3.0 mm balloon RECOMMENDATIONS ASA Indefinitley Plavix for at least 12 months DESCRIPTION OF PROCEDURE The patient arrived to the procedure lab. The risks and benefits of the procedure as well as a full description of our services here and current unavailability of surgical backup were fully explained to the patient and/or their significant other prior to the catheterization. The Timeout was completed, verifying the correct patient and procedure. The patient's procedural site was prepped and draped in the usual fashion. Local anesthetic was given subcutaneously to right radial region with Lidocaine 2%. Using a modified Seldinger technique, arterial access was obtained via the right radial artery, a 6Fr sheath was inserted.. XB 3.0 Guide catheter was inserted and engaged into the LCA. Runthrough Guide wire was advanced to the 1st OM. Emerge 2.25 x 12 Balloon catheter was inserted. Balloon catheter was advanced across lesion in the first obtuse marginal, distal. Angiogram performed pre balloon dilatation. PTCA balloon inflated at 8 atms for 8 secs. PTCA balloon inflated at 8 atms for 20 secs. Resolute Dontae 2.25 x 26 Drug Eluting stent was inserted. Drug Eluting stent was advanced across the lesion in the first obtuse marginal, distal. NC Emerge 2.50 x 12 Balloon catheter was inserted. Balloon catheter was advanced across lesion in the first obtuse marginal, distal. Angiogram performed pre balloon dilatation. Nc Emerge 3.00 x 8 Balloon catheter was inserted. Balloon catheter was advanced across lesion in the first obtuse marginal, distal. The arterial sheath was pulled and a TR Band was applied for hemostasis INTERVENTION INFORMATION LESION SITE: 1st OM (Distal) Lesion Complexity: High/C, lesion length: 24 mm Pre Stenosis: 90 % Pre intervention NIMCO flow: 3 PROCEDURE: Drug Eluting Stent with pre and post dilatation Post Stenosis: 0 % Post intervention NIMCO flow: 3 Lesion Devices: Terumo .014 180cm Runthrough Extra Floppy straight Cordis 6 Fr XB3.0 100cm Guide Catheter Jc Sci EMERGE MR 2.25x12 BALLOON Medtronic Resolute Hooper RX MELVIN 2.25x26 Jc Sci NC EMERGE MR 2.50x12 BALLOON Jc Sci NC EMERGE MR 3.00x08 BALLOON COMPLICATIONS No Complications PROCEDURE MEDICATIONS Fentanyl 50 mcg IV Versed 1 mg IV Oxygen: 2 L/min via nasal cannula Heparin given IA 06/17/2023 09:21:23 Heparin 6000 unit(s) IV 06/17/2023 09:28:05 Nitro 200 mcg IC 06/17/2023 09:44:02 Nitro 50 mcg IC 06/17/2023 09:53:57 Verapamil 2.5mg, Ntg 200mcgs, 2000 units of Heparin given IA 06/17/2023 09:21:23 IV Bolus: .9 NaCl 250 ml total 06/17/2023 09:29:17 SUMMARY OF HEMODYNAMIC DATA Time Signed By Елена Bhat MD On 06/17/2023 10:12:53 Елена Bhat MD
--- NOTE | 2023-06-17 10:26 | CRPHASE1_ITS ---
Patient Communication Patient Information Former Patient:: Phase I PHII Cardiac Rehab Discussed with Patient:: Yes Guide to Cardiac Rehab Given to Patient:: Yes Cardiac Rehab Facility Choice List Given to Patient:: Yes Communication to Cardiac Rehab Foster Care Case Manager:: Lauro Gaytan Refer Phase II Cardiac Rehab:: Yes Sessions:: 36 sessions - 3 days/wk, 12 weeks Cardiac Rehabilitation Info Program Information Cardiac Rehabilitation Program Information: Cardiac Rehab The cardiac rehab team at [facility] consists of highly skilled exercise physiologists, nurses, respiratory therapists and physicians working together with you. Our purpose is to help you have a full recovery and achieve the goals you set for yourself. Over the years many of our patients have returned to activities they assumed they would never do again! We can help restore your confidence and motivation to make lifestyle changes that can have a significant impact on your health and quality of life! We can help answer questions and concerns you may have about exercise, lifestyle, medications, diet, stress and anxiety which are common following a hospitalization. WE monitor ECG and vital signs during exercise and discuss your progress with you and report to your physician(s). Cardiac Rehab is proven to help reduce readmissions, improve functional capacity and lower recurrence of problems with your heart. Our Cardiac Rehab program is Certified by the [place] [employer] Pulmonary [employer] (AACVPR) and Accredited by the [place] [employer] through our [facility]. You can contact us at . We invite you to call us with your questions or to get started in our program. If you have other questions or concerns be sure to ask your physician/provider during your follow-up visit. WE look forward to seeing you!
--- NOTE | 2023-06-17 10:27 | CRPH1.INSTRU ---
General Education Discussed with Patient CAD and cardiac anatomy and function:: Patient communicates acknowledgment Explanation of diagnoses and procedures:: Patient communicates acknowledgment Sign/Symptoms of [place]:: Patient communicates acknowledgment Antiplatelet therapy: Patient communicates acknowledgment Proper use of NTG-SL: Patient communicates acknowledgment Emergency procedures and activation of EMS: Patient communicates acknowledgment Compliance of all prescribed medications: Patient communicates acknowledgment Smoking Risk Factors Patient Nicotine/Smoking Risk Factors Are:: Never smoked Dyslipidemia Recommendations Recommendations Include:: Lipid profile not available Overweight/Obesity Risk Factors Patient Overweight/Obesity Risk Factors Are:: Overweight = 26-29 Recommendations Recommendations Include:: Reduced calorie diet Response Code Overweight/Obesity:: Patient communicates acknowledgment Hypertension Recommendations Recommendations Include:: Maintain BP <130/85 Response Code Hypertension:: Patient communicates acknowledgment Heart Disease Risk Factors Patient Heart Disease Risk Factors Are:: Previous cardiac event Recommendations Recommendations Include:: Educated family members of their risk and Educated family members of importance of prevention of heart disease Response Code Heart Disease Response Code:: Patient communicates acknowledgment Diabetes Response Code Diabetes:: Not instructed Metabolic Syndrome Risk Factors Patient Metabolic Syndrome Risk Factors Are [3 of 5]:: Waist circumference > 35 [female] or 40 [male] Response Code Metabolic Syndrome Response Code:: Patient communicates acknowledgment Sedentary Risk Factors Patient Sedentary Risk Factors Are:: Lack of regular exercise Recommendations Recommendations Include:: Benefits of regular exercise, Discussed home walking program and Monitored Outpatient Cardiac Rehab Response Code Sedentary Response Code:: Patient communicates acknowledgment Stress Recommendations Recommendations Include:: Identification of stressors, and assessment of coping skills and Stress management techniques Response Code Stress Response Code:: Patient communicates acknowledgment
[2023-06-17] MEDS: 0.9% Normal Saline (1000mL) 1,000 ML 150 ML IV (12:50)
[2023-06-17 17:34] LABS: ACT Activated Clotting Time 233 sec (74-137)
[2023-06-17] MEDS: Naproxen 500 MG Tablet PO (21:11)
[2023-06-17] MEDS: Atorvastatin Calcium 20 MG Tablet PO (21:11)
[2023-06-17] MEDS: Metoprolol Tartrate 50 MG Tablet PO (21:11)
[2023-06-18] VITALS (7 sets, daily range): BP systolic 118–133; BP diastolic 75–82; PULSE 58–64; RESP 14–16; TEMP 36.3–36.7; O2SAT 97–100
[2023-06-18] MEDS: Levothyroxine 100 MCG Tablet PO (06:23)
[2023-06-18 07:32] LABS: Hematocrit 37.8 % (37-47); Hemoglobin 12.5 g/dL (12.0-15.0); Mean Corp Hgb Conc 33.1 g/dL (32-36); Mean Corpuscular Hgb 31.8 pg (27.0-32.0); Mean Corpuscular Volume 96.2 fL (81-99); Mean Platelet Vol. 10.2 fl (6.2-12.0); Platelet Count 222 K/mm3 (150-450); RBC Distribution Width SD 46.1 fl (35.1-43.9); Red Blood Count 3.93 M/mm3 (4.2-5.4); White Blood Count 3.2 K/mm3 (4.4-11.0)
[2023-06-18 07:54] LABS: ALB/GLOB Ratio 1.2 RATIO (0.9-2.4); AST(SGOT) 20 U/L (15-37); Alanine Aminotransfer ALT/SGPT 35 U/L (13-56); Albumin, Serum 3.6 g/dL (3.2-5.0); Alkaline Phosphatase 67 U/L (45-117); Anion Gap 3 (5-15); BUN 19 mg/dL (7-18); BUN/Creat Ratio 27.5 RATIO (10-20); Chloride 113 mmol/L (98-107); Creatinine, Serum 0.69 mg/dL (0.55-1.02); EST Glomerular Filtration Rate 93 mL/min (>60); Est Glom Filt Rate - Afr Amer 112 mL/min (>60); Glucose 99 mg/dL (74-106); Potassium 3.6 mmol/L (3.5-5.1); Protein, Total 6.6 g/dL (6.4-8.2); Sodium Level 141 mmol/L (136-145)
[2023-06-18] MEDS: Metoprolol Tartrate 50 MG Tablet PO (08:12)
[2023-06-18] MEDS: Aspirin E.C. 81 MG Tablet PO (08:12)
[2023-06-18] MEDS: Lisinopril 10 MG Tablet PO (08:12)
[2023-06-18] MEDS: Clopidogrel Bisulfate 75 MG Tablet PO (08:12)
[2023-06-18] MEDS: Magnesium Chloride 64 MG Delay Rel.Tablet 128 MG PO (08:12)
[2023-06-18] MEDS: amLODIPine 10 MG Tablet PO (08:12)
[2023-06-18] MEDS: Naproxen 500 MG Tablet PO (08:12)
[2023-06-18] MEDS: hydroCHLOROthiazide 25 MG Tablet PO (08:13)
[2023-06-18] MEDS: Influenza Virus Vac Quad 23-24 60 MCG/0.5 ML SYRINGE IM (11:10)
--- NOTE | 2023-06-18 12:15 | PHA.DC.MR.R ---
Pharmacy [place] Med Reconciliation Pharmacy Service has performed discharge medication reconciliation for this patient. No new medications at time of discharge review. Medications reviewed are from previously reported home medications. The patient's discharge medication list was reviewed for discrepancies and discrepancies were resolved. Medications at Discharge Home Medications amlodipine 10 mg tablet 10 mg PO DAILY 01/02/23 aspirin 81 mg tablet,delayed release (Adult Low Dose Aspirin) 81 mg PO DAILY 01/02/23 fluticasone propionate 50 mcg/actuation nasal spray,suspension (Flonase Allergy Relief) 2 spray intranasal BID 01/02/23 hydrochlorothiazide 25 mg tablet 25 mg PO DAILY 01/02/23 levothyroxine 100 mcg tablet 100 mcg PO DAILY 01/02/23 lisinopril 10 mg tablet 10 mg PO DAILY 01/02/23 magnesium oxide 500 mg capsule 500 mg PO DAILY 01/02/23 naproxen 500 mg tablet 500 mg PO BID 01/02/23 atorvastatin 20 mg tablet 20 mg PO QHS #90 tabs 02/03/23 nitroglycerin 0.4 mg sublingual tablet 0.4 mg sublingual Q5-15M PRN chest pain #25 tabs 04/03/23 clopidogrel 75 mg tablet 75 mg PO DAILY #90 tabs 05/11/23 metoprolol tartrate 50 mg tablet 50 mg PO BID 06/01/23 evolocumab 420 mg/3.5 mL subcutaneous wearable injector (Repatha Pushtronex) 420 mg (3.5 mL) subcut QMONTH #3.5 mL 06/02/23
== END 2023-06-18 10:00 | disposition home or self-care (01) ==
LOC: CLSP 10:05 → PCU 12:10
PROVIDERS: Admitting Provider Internal Medicine Cardiovascular Disease; PCP Family Medicine; Referring Provider Internal Medicine Cardiovascular Disease; Visit Provider Internal Medicine Cardiovascular Disease
DX: I25.119 Atherosclerotic heart disease of native coronary artery with unspecified angina pectoris (principal); I73.9 Peripheral vascular disease, unspecified; Z79.899 Other long term (current) drug therapy; Z79.82 Long term (current) use of aspirin; Z79.02 Long term (current) use of antithrombotics/antiplatelets; Z79.890 Hormone replacement therapy; Z79.51 Long term (current) use of inhaled steroids; I10 Essential (primary) hypertension; E03.9 Hypothyroidism, unspecified; E78.2 Mixed hyperlipidemia; R94.39 Abnormal result of other cardiovascular function study; Z95.5 Presence of coronary angioplasty implant and graft; Z23 Encounter for immunization
CPT/HCPCS: 36415; 80053; 85027; 85347; 92928; 93005; 96360; 96361; 99152; 99153; 99221; J7030; J7040; Q9967; 90686; C1769; C1887; C1894; C9600; G0378

== ENCOUNTER → 2023-07-02 | Outpatient (CLI) | payer OTHER, SELFPAY ==
--- NOTE | 2023-07-02 08:40 | CDU_ITS ---
Reason For Study: bruit Rt. Velocities/BP Lt. Velocities/BP Prox CCA 77.8/19.2 cm/sec. Prox CCA 55.1/23.0 cm/sec. Mid CCA 56.0/16.3 cm/sec. Mid CCA 50.4/20.1 cm/sec. Dist CCA 63.6/22.0 cm/sec. Dist CCA 47.5/16.3 cm/sec. Prox ICA 40.9/13.5 cm/sec. Prox ICA 91.2/40.9 cm/sec. Mid ICA 62.6/33.3 cm/sec. Mid ICA 63.0/28.6 cm/sec. Dist ICA 75.9/34.3 cm/sec. Dist ICA 88.8/34.8 cm/sec. Rt. ICA/CCA = 1.4. Lt. ICA/CCA = 1.8. Prox ECA 75.9/19.2 cm/sec. Prox ECA 335.3/94.1 cm/sec. Rt. Vert. 49.4/17.3 cm/sec. Lt. Vert. 45.8/15.1 cm/sec. Right Extracranial There is heterogeneous, irregular atherosclerotic plaque noted in the right common carotid artery. There is heterogeneous, irregular atherosclerotic plaque noted in the right internal carotid artery. There is heterogeneous, irregular atherosclerotic plaque noted in the right external carotid artery. Antegrade flow is noted in the right vertebral artery. Left Extracranial There is heterogeneous, irregular atherosclerotic plaque noted in the left common carotid artery. There is heterogeneous, irregular atherosclerotic plaque noted in the left internal carotid artery. There is heterogeneous, irregular atherosclerotic plaque noted in the left external carotid artery. Antegrade flow is noted in the left vertebral artery. Procedure Carotid Duplex [id number]. This is a Carotid Duplex examination using B-mode, color flow and specral Doppler. The exam was diagnostic. Exam performed in department. VL/Carotid Duplex Ultrasound Interpretation Summary Mild (<50%) stenosis right extracranial internal carotid. Mild (<50%) stenosis left extracranial internal carotid. Patent and antegrade vertebrals bilaterally. Ordering Physician: Cristo Barriga Performed By: Ori Nunez RVT
== END | disposition home or self-care (01) ==
LOC: CVS 08:39
PROVIDERS: PCP Family Medicine; Referring Provider Surgery Trauma Surgery; Visit Provider Surgery Trauma Surgery
DX: I65.23 Occlusion and stenosis of bilateral carotid arteries (principal); R09.89 Other specified symptoms and signs involving the circulatory and respiratory systems
CPT/HCPCS: 93880

== ENCOUNTER → 2023-07-09 | Outpatient (CLI) | payer OTHER, SELFPAY ==
[2023-07-09 18:14] LABS: T4 Free Direct 1.73 ng/dL (0.76-1.46); Thyroid Stim Hormone (TSH) 0.12 uIU/mL (0.358-3.74)
== END | disposition home or self-care (01) ==
LOC: MFPLAB 15:40
PROVIDERS: PCP Family Medicine; Visit Provider Family Medicine
DX: E03.9 Hypothyroidism, unspecified (principal)
CPT/HCPCS: 36415; 84439; 84443

== ENCOUNTER → 2023-07-24 | Outpatient (CLI) | payer OTHER, SELFPAY ==
--- NOTE | 2023-07-24 08:30 | ADUUE_ITS ---
Reason For Study: Right arm edema s/p cath RIGHT Radial artery mid, 54.2 cm/sec. Radial artery distal, 62 cm/sec. Ulnar artery distal, 72.3 cm/sec. Radial, Ulnar and Cephalic veins are compressible. No acute occlusion or pseudoaneurysm noted in the right arm. Preliminary report given to Margo PANTOJA. /US Art Duplex Unilat UP Extrem Interpretation Summary Patent flow was noted in the right radial and ulnar arteries. No evidence for o cclusion or pseudoaneurysm noted. Ordering Physician: Елена Bhat Referring Physician: Piotr Tay MD Performed By: Lenore Iniguez RVT
== END | disposition home or self-care (01) ==
LOC: CVS 08:28
PROVIDERS: PCP Family Medicine; Referring Provider Internal Medicine Cardiovascular Disease; Visit Provider Internal Medicine Cardiovascular Disease
DX: I73.9 Peripheral vascular disease, unspecified (principal)
CPT/HCPCS: 93931

== ENCOUNTER → 2023-09-08 | Outpatient (CLI) | payer OTHER, SELFPAY ==
[2023-09-08 12:45] LABS: ALB/GLOB Ratio 1.2 RATIO (0.9-2.4); AST(SGOT) 18 U/L (15-37); Alanine Aminotransfer ALT/SGPT 22 U/L (13-56); Alkaline Phosphatase 74 U/L (45-117); Anion Gap 6 (5-15); BUN 22 mg/dL (7-18); BUN/Creat Ratio 24.5 RATIO (10-20); Chloride 109 mmol/L (98-107); Cholesterol 162 mg/dL (200); EST Glomerular Filtration Rate 68 mL/min (>60); Est Glom Filt Rate - Afr Amer 83 mL/min (>60); Globulin 3.2 g/dL (2.2-4.2); Glucose 90 mg/dL (74-106); High Density Lipoprotein 81 mg/dL; Potassium 3.7 mmol/L (3.5-5.1); Protein, Total 7.2 g/dL (6.4-8.2); Sodium Level 142 mmol/L (136-145); Thyroid Stim Hormone (TSH) 3.45 uIU/mL (0.358-3.74); Triglycerides 67 mg/dL; Very Low Density Lipoprotein 13 mg/dL (5-40)
[2023-09-08 13:03] LABS: Hemoglobin A1c 5.4 % (3.8-5.6)
== END | disposition home or self-care (01) ==
LOC: MFPLAB 10:25
PROVIDERS: PCP Family Medicine; Visit Provider Family Medicine
DX: E03.9 Hypothyroidism, unspecified (principal); I25.10 Atherosclerotic heart disease of native coronary artery without angina pectoris
CPT/HCPCS: 36415; 80053; 80061; 83036; 84439; 84443

== ENCOUNTER → 2023-09-23 | Outpatient (CLI) | payer OTHER, SELFPAY ==
--- NOTE | 2023-09-23 12:12 | BI_ITS ---
MAMMOGRAPHY - BILATERAL SCREENING REASON FOR EXAM: Female, 58 years old. Routine annual screening examination. PERTINENT HISTORY: Sister with breast cancer. TECHNIQUE: Digital bilateral breast lavern (3D mammographic acquisition) in the CC and MLO projections. 2-D mediolateral oblique (MLO) and craniocaudad (CC) views of both breasts were obtained. CAD: Full Field Digital Mammography with Computer Added Detection was performed. COMPARISON: Comparison is made with prior study dated August 13, 2022. FINDINGS: Breast Composition: The breasts are heterogeneously dense, which may obscure small masses. There are no dominant masses or suspicious calcifications. No other significant abnormalities are identified. There has been no significant change since the prior study. BI/SCRN MAMM (CAD)W/LAVERN BILAT IMPRESSION: Stable bilateral screening mammogram. Yearly follow-up mammogram recommended. (A) ASSESSMENT CATEGORY: BIRADS Category 1: Negative. A letter regarding these results will be sent to the patient by the facility within 30 days. Approximately 10% of breast cancers are not detected by mammography. A normal mammogram should not delay biopsy of a clinically suspicious abnormality. [id number] Electronically Signed: Clive Berkowitz MD at 13:29 EST ,
--- OUTSIDE RECORDS SUMMARY | 2023-09-23 13:10 | XMS RPT_ITS | CCD ---
Author Name Unknown Address [address] [place] [address] Organization [facility] Care Team Providers Care Inspector Final Assembly Electrical Name Role Phone Elizabeth Gary Primary Care Provider Medications Current Medications Medication Drug Class(es) Dates Sig (Normalized) Sig (Original) aspirin 81 mg oral tablet (3 sources) Platelet Aggregation Inhibitor, Nonsteroidal Anti-inflammator y Drug take 1 tablet by mouth once daily aspirin 81 MG tablet Take 81 mg by mouth daily 0 Active atorvastatin 80 mg oral tablet (3 sources) HMG-CoA Reductase Inhibitor take 1 tablet by mouth once daily atorvastatin (LIPITOR) 80 MG tablet Take 80 mg by mouth daily 0 Active hydroCHLOROthiazide 12.5 mg oral capsule (3 sources) Thiazide Diuretic take 1 capsule by mouth once daily hydrochlorothiazide (MICROZIDE) 12.5 MG capsule Take 12.5 mg by mouth daily 0 Active metoprolol tartrate 25 mg oral tablet (3 sources) beta-Adrenergic Orlin take 1 tablet by mouth twice daily metoprolol (LOPRESSOR) 25 MG tablet Take 25 mg by mouth 2 times daily 0 Active Results Test Name Value Interpretation Reference Range Facil ity Encounters Encounter Date Encounter Type Care Provider Facility Start: 06-06-2020 End: 06-06-2020 Subsequent hospital visit by physician Arcelia Ariza Work Phone: [facility] Procedures Date Procedure Procedure Detail Performing Clinician Start: 06-06-2020 Diagnostic mammograp hy computer-aided detcj uni Arcelia Ariza Work Phone: Plan of Treatment Date Care Activity Detail Author Start: 10-24-2021 Screening for malign ant neoplasm of [facility] [place] Start: 10-11-2021 Breast cancer screen Breast cancer s deej[facility] Work Phone: Start: 05-22-2020 Influenza vaccination Flu vaccine (# 1) [place], [place] Start: 05-22-2019 Influenza vaccination Flu vaccine (# 1) [facility] Work Phone: Start: 06-19-2017 Shingles Vaccine (2 of 3) Shingles V accine (2 of 3) [facility] Work Phone: Start: 2014 Breast cancer screen Breast cancer s creen [facility] Work Phone: Start: 2014 Colon cancer screen colonoscopy Colon cancer screen colonoscopy [facility] Work Phone: Start: 2014 Screening for malign ant neoplasm of colon Colon cancer screen colonoscopy [place], [place] Start: 2014 Shingles Vaccine (1 of 2) Shingles V accine (1 of 2) [facility] Work Phone: Start: 1985 Cervical cancer screen Cervical canc er screen [facility] Work Phone: Start: 1985 Screening for malign ant neoplasm of cervix Cervical cancer screen [place], [place] Start: 1983 DTaP/Tdap/Td vaccine (1 - Tdap) DTaP/Tdap/Td vaccine (1 - Tdap) [place], [place] Start: 1979 HIV screen HIV screen [facility] Work Phone: Start: 1979 HIV screening HIV screen [place], [place] Start: 1975 DTaP/Tdap/Td vaccine (1 - Tdap) DTaP/Tdap/Td vaccine (1 - Tdap) [facility] Work Phone: Start: 1974 Lipid panel Lipid screen [place], [place] Start: 1974 Lipid screen Lipid screen [facility] Work Phone: Start: 1970 Pneumococcal 0-64 ye ars Vaccine (1 of 1 - PPSV23) Pneumococcal 0-64 years Vaccine (1 of 1 - PPSV23) [facility] Work Phone: Start: 1964 Creatinine measurement Creatinine mo nitoring [place], [place] Start: 1964 Creatinine monitoring Creatinine mon itoring [facility] Work Phone: Start: 1964 Hepatitis C screen Hepatitis C burke saldivar [facility] Work Phone: Start: 1964 Hepatitis C screening Hepatitis C sc scot [place], [place] Start: 1964 Potassium monitoring Potassium monit oring [facility] Work Phone: End: 10-24-2019 LISSET LAVERN DIGITAL DIAGNOSTIC UNILATERAL LEFT LISSET LAVERN DIGITAL DIAGNOSTIC UNILATERAL LEFT Imaging Routine Once for 1 Occurrences starting 10/24/2019 until 10/24/2019 [facility] Work Phone: Payers Date Payer Category Payer Medicaid [facility] [place] [facility] [place] [facility] xxxxxxxxxxxx 2015-Present [phone] [address] [place] [id number] xxxxxxxxxxxx [id number] 2015 Medicaid [facility] [place] [facility] [place] [facility] [id number] 2015-Present [phone] [address] [place] [id number] Social History Date Type Detail Facility Start: 12-05-2015 [facility] Work Phone: Start: 12-05-2015 Cigarettes smoked current (pack per day) - Reported [facility] Work Phone: Start: 12-05-2015 Alcohol intake Current drinke r of alcohol (finding) [facility] Work Phone: Start: 12-05-2015 Alcohol Comment Pt drinks ocassional ly [facility] Work Phone: Sex Assigned At Not on file [facility] Work Phone: Advance Directives Documents on File Type Date Recorded Patient Social Work Therapist Expl anation Advance Directives and Living Will Power of Long Lines Operator Documents on File Type Date Recorded Patient Social Work Therapist Expl anation ACP-Advance Directive ACP-Power of Long Lines Operator Summary Purpose Family History No Family History Records Found Additional Source Comments INFORMATION SOURCE (unrecogn ized section and content) FOR RECORDS PERTAINING TO PATIENTS WHO ARE OR HAVE BEEN ENROLLED IN A CHEMICAL DEPENDENCY/SUBSTANCEABUSE PROGRAM, SOME INFORMATION MAY BE OMITTED. This clinical summary was aggregated from multiple sources. Caution should be exercised in using it in the provision of clinical care. This summary normalizes information from multiple sources, and as a consequence, information in this document may materially change the coding, format and clinical context of patient data. In addition, data may be omitted in some cases. CLINICAL DECISIONS SHOULD BE BASED ON THE PRIMARY CLINICAL RECORDS. [employer] provides no warranty or guarantee of the accuracy or completeness of information in this document.
--- NOTE | 2023-09-23 14:04 | CT_ITS ---
STUDY: LOW DOSE CT LUNG CANCER SCREENING REASON FOR EXAM: Female, 58 years old. smoker for 40 years RADIATION DOSAGE (If Supplied By Facility): CTDIvol = ( 3.02 ) mGy, DLP = ( 97.42 ) mGycm TECHNIQUE: No contrast was administered. Low dose technique was utilized (average mAS-38 and kVp 120). 1.25 mm axial source images with a slice interval of 1.25-mm were reconstructed in lung windows. 2.5 mm axial source images with a slice interval of 2.5-mm were reconstructed in lung windows. 5.0 mm axial source images with a slice interval of 5.0-mm were reconstructed in soft tissue windows. COMPARISON: None. Emphysema: Mild emphysema. No noncalcified nodule or mass. Endobronchial lesion: None Aorta: Calcified plaque in the aortic arch but no aortic aneurysm. CORONARY ARTERIES: Coronary artery calcification is seen. Heart: No cardiomegaly. Pulmonary artery: Normal Mediastinal nodes: Normal Other chest and abdominal findings: None CT/Low Dose CT Lung Screening IMPRESSION: Lung-RADS category 1 - Continue annual screening with LDCT in 12 months. IMPORTANT NOTES FOR USE: ACR Lung-RADS Version 1.1 Assessment Categories Release Date: 2018 Category: Coded 0-4 bases on nodule(s) with highest degree of suspicion. Negative screen is defined as categories 1 and 2; a positive screen is defined as categories 3 and 4. Category 3 and 4A nodules that are unchanged on interval CT should be coded as category 2, and individuals returned to screening in 12 months. Category 4X: Category 3 or 4 nodules with additional imaging findings that increase the suspicion of lung cancer, such as spiculation, GGN that doubles in size in 1 year, enlarged lymph notes, etc. Category Modifiers: S (significant finding unrelated to lung cancer) Electronically Signed: Christopher Cordero MD at 19:23 EST ,
== END | disposition home or self-care (01) ==
PROVIDERS: PCP Family Medicine; Referring Provider Family Medicine; Visit Provider Family Medicine
DX: Z12.31 Encounter for screening mammogram for malignant neoplasm of breast (principal); Z87.891 Personal history of nicotine dependence; I10 Essential (primary) hypertension; Z80.3 Family history of malignant neoplasm of breast
CPT/HCPCS: 71271; 77063; 77067

== ENCOUNTER → 2024-02-10 | Outpatient (CLI) | payer OTHER, SELFPAY ==
[2024-02-10 15:34] LABS: Anion Gap 7 (5-15); BUN 20 mg/dL (7-18); BUN/Creat Ratio 25.7 RATIO (10-20); Calcium,Total 10.3 mg/dL (8.5-10.1); Chloride 106 mmol/L (98-107); Creatinine, Serum 0.78 mg/dL (0.55-1.02); EST Glomerular Filtration Rate 81 mL/min (>60); Est Glom Filt Rate - Afr Amer 98 mL/min (>60); Glucose 91 mg/dL (74-106); Potassium 3.6 mmol/L (3.5-5.1); Sodium Level 139 mmol/L (136-145)
[2024-02-10 15:36] LABS: BNP,B-Type NATRIURETIC PEPTIDE 24.9 pg/mL (0-100)
== END | disposition home or self-care (01) ==
LOC: LAB 13:32
PROVIDERS: PCP Family Medicine; Referring Provider Nurse Practitioner Gerontology; Visit Provider Nurse Practitioner Gerontology
DX: R06.09 Other forms of dyspnea (principal)
CPT/HCPCS: 36415; 80048; 83880

== ENCOUNTER 2024-07-26 06:54 | Outpatient (CLI) | payer OTHER, SELFPAY ==
[2024-07-22 10:59] LABS: Cholesterol 141 mg/dL (200); High Density Lipoprotein 72 mg/dL; Triglycerides 66 mg/dL; Very Low Density Lipoprotein 13 mg/dL (5-40)
--- NOTE | 2024-07-22 12:33 | RAD_ITS ---
INDICATION: Preop Heart Catheterization EXAMINATION/TECHNIQUE: X-RAY - XR Chest 2 Views COMPARISON: Prior study dated: 04/06/2023 FINDINGS: LINES/DEVICES: None. LUNGS: The lungs are well expanded. No consolidation, edema or effusion. No pneumothorax. MEDIASTINUM AND CARDIOVASCULAR STRUCTURES: Cardiac silhouette not enlarged. Central airways and mediastinal contour are unremarkable. BONES AND SOFT TISSUES: No acute abnormality. RAD/Chest PA and Lateral IMPRESSION: No acute pulmonary finding. Electronically Signed: Misael Coughlin MD at 23:50 EDT ,
[2024-07-22 12:43] LABS: Absolute Lymphocyte Count 1.53 X10^3/uL (0.83-4.51); Absolute Neutrophil Count 2.5 X10^3/uL (2.0-7.7); Basophil# 0.04 X10^3/uL; Basophil% 0.9 % (0-1); Eosinophils% 2.3 % (0-5); Hematocrit 40.5 % (37-47); Hemoglobin 13.6 g/dL (12.0-15.0); Lymphocyte # 1.53 X10^3/ul (0.83-4.51); Lymphocyte % 34.6 % (19-41); Mean Corp Hgb Conc 33.6 g/dL (32-36); Mean Corpuscular Hgb 32.2 pg (27.0-32.0); Mean Platelet Vol. 9.9 fl (6.2-12.0); Monocyte# 0.24 X10^3/uL; Monocyte% 5.4 % (0-10); NRBC Flagged by Analyzer 0 % (0-5); Neutrophil % 56.6 % (47-70); Platelet Count 265 K/mm3 (150-450); RBC Distribution Width CV 12.5 % (11.6-14.6); RBC Distribution Width SD 44.6 fl (35.1-43.9); Red Blood Count 4.22 M/mm3 (4.2-5.4); White Blood Count 4.4 K/mm3 (4.4-11.0)
[2024-07-22 12:46] LABS: Partial Thromboplast Time 29.3 Seconds (24.1-36.2); Prothrombin Time (Protime)PT. 13.3 SECONDS (11.7-14.9)
[2024-07-22 13:36] LABS: Anion Gap 5 (5-15); BUN 17 mg/dL (7-18); BUN/Creat Ratio 20.4 RATIO (10-20); Chloride 114 mmol/L (98-107); Creatinine, Serum 0.83 mg/dL (0.55-1.02); EST Glomerular Filtration Rate 74 mL/min (>60); Est Glom Filt Rate - Afr Amer 90 mL/min (>60); Glucose 123 mg/dL (74-106); Potassium 3.9 mmol/L (3.5-5.1); Sodium Level 144 mmol/L (136-145)
[2024-07-25 11:59] VITALS: BMI 31.1
--- NOTE | 2024-07-26 09:45 | DCINST_ITS ---
Discharge Instructions Diet Discharge Diet: Low fat / Low cholesterol Activity Discharge Activity: Return to Normal Activity Dressing / Incision Call your doctor if your incision/area has: Continuous Slow Oozing, Sudden Increased Bleeding, Increased Pain/ Swelling, Increased Redness, Foul Smelling Discharge and Swelling at the incision site Call your doctor if you observe: Fever of 101 or Higher Follow Up Care Please Follow Up With: Елена Bhat MD When: 2-4 weeks Test Results: Test results from this visit will be discussed in further detail at your follow- up appointment, if applicable. Discharge Plan Admission Reason For Visit: CAMARGO Attending Provider: Елена Bhat Primary Care Provider: Piotr Tay Discharge Orders/Prescriptions Prescriptions: No Action levothyroxine 100 mcg tablet 100 mcg PO DAILY hydrochlorothiazide 25 mg tablet 25 mg PO DAILY amlodipine 10 mg tablet 10 mg PO DAILY lisinopril 10 mg tablet 10 mg PO DAILY aspirin [Adult Low Dose Aspirin] 81 mg tablet,delayed release (DR/EC) 81 mg PO DAILY fluticasone propionate [Flonase Allergy Relief] 50 mcg/actuation spray,suspension 2 spray intranasal BID PRN (Reason: nasal congestion) Rx Instructions: administer into each nostril nitroglycerin 0.4 mg tablet, sublingual 0.4 mg sublingual Q5-15M PRN (Reason: chest pain) Qty: 25 1RF Rx Instructions: do not exceed 3 doses per episode atorvastatin 20 mg tablet 20 mg PO QHS Qty: 90 3RF clopidogrel 75 mg tablet 75 mg PO DAILY Qty: 90 3RF metoprolol tartrate 50 mg tablet 50 mg PO BID Qty: 180 3RF Repatha SureClick 140 mg/mL pen injector 140 mg subcut Q2W Qty: 2 11RF Referrals / Follow Up: Piotr Tay MD [Primary Care Provider] - Disposition Patient Disposition: Home, Self Care
--- NOTE | 2024-07-26 09:47 | DCINST_ITS ---
Discharge Instructions Diet Discharge Diet: Low fat / Low cholesterol Dressing / Incision Call your doctor if your incision/area has: Continuous Slow Oozing, Sudden Increased Bleeding, Increased Pain/ Swelling, Increased Redness, Foul Smelling Discharge and Swelling at the incision site Call your doctor if you observe: Fever of 101 or Higher Follow Up Care Please Follow Up With: Елена Bhat MD Test Results: Test results from this visit will be discussed in further detail at your follow- up appointment, if applicable. Discharge Plan Admission Reason For Visit: CAMARGO Attending Provider: Елена Bhat Primary Care Provider: Piotr Tay Discharge Orders/Prescriptions Prescriptions: No Action levothyroxine 100 mcg tablet 100 mcg PO DAILY hydrochlorothiazide 25 mg tablet 25 mg PO DAILY amlodipine 10 mg tablet 10 mg PO DAILY lisinopril 10 mg tablet 10 mg PO DAILY aspirin [Adult Low Dose Aspirin] 81 mg tablet,delayed release (DR/EC) 81 mg PO DAILY fluticasone propionate [Flonase Allergy Relief] 50 mcg/actuation spray,susp ension 2 spray intranasal BID PRN (Reason: nasal congestion) Rx Instructions: administer into each nostril nitroglycerin 0.4 mg tablet, sublingual 0.4 mg sublingual Q5-15M PRN (Reason: chest pain) Qty: 25 1RF Rx Instructions: do not exceed 3 doses per episode atorvastatin 20 mg tablet 20 mg PO QHS Qty: 90 3RF clopidogrel 75 mg tablet 75 mg PO DAILY Qty: 90 3RF metoprolol tartrate 50 mg tablet 50 mg PO BID Qty: 180 3RF Repatha SureClick 140 mg/mL pen injector 140 mg subcut Q2W Qty: 2 11RF Referrals / Follow Up: Piotr Tay MD [Primary Care Provider] - Disposition Patient Disposition: Home, Self Care
--- NOTE | 2024-07-26 10:05 | CL.I_ITS ---
Patient Name: AUTUMN VAZQUEZ Study Date: 07/26/2024 Performing: Елена Bhat MD Ht: 66 inches 167.64 cm : 1965 Wt: 192.99 lbs 87.54 kg Age: 58 Gender: female BSA: 1.97 PROCEDURE(S) PERFORMED DC02-(64248)LHC/COR IC10-(90802)FFR, CORONARY OR GRAFT, INITIAL VESSEL IC12-(86711/C9600)MELVIN W/WO PTCA, SINGLE CORONARY ARTERY IC11-(31628)FFR, CORONARY OR GRAFT, EACH ADD'L VESSEL CLINICAL PROFILE AND CO-MORBIDITIES Indications: New Onset Angina <= 2 months Heart Failure: None Angina Classification Anginal Classification w/in 2 Weeks: CCS II CAD Presentations: Stable angina. CONCLUSIONS 50% Mid LAD 9iFR 0.95) Stent to OM1 patent ISR Mid RCA 40%. Distal RCA 50-60% (iFR 1.0) 80% distal LCX Successful MELVIN distal LCX using [place] Adair 2.0x12 mm, post-dilated using 2.25 mm balloon RECOMMENDATIONS ASA Indefinitley P2Y12 inhibitors for atleast 6 months DESCRIPTION OF PROCEDURE The patient arrived to the procedure lab. The risks and benefits of the procedure as well as a full description of our services here and lack of surgical backup were fully explained to the patient and/or their significant other prior to the catheterization. The Timeout was completed, verifying the correct patient and procedure. The patient's procedural site was prepped and draped in the usual fashion. Local anesthetic was given subcutaneously to right radial region with Lidocaine 2%. Using a modified Seldinger technique, arterial access was obtained via the right radial artery, a 6Fr sheath was inserted.. Left Coronary Artery selective angiography was performed in multiple views using a 5 Fr. 4.0 [place] catheter. Right Coronary Artery selective angiography was then performed in multiple views using a 5 Fr. 4.0 [place] catheterThe images were reviewed and options discussed. A decision was then made to proceed with an Intervention, IVUS or other adjunct procedure. JR4 Guide catheter was inserted and engaged into the RCA. The FFR/iFR wire was inserted. Pressures and FFR/iFR were then recorded. The FFR/iFR wire was then removed. The FFR/iFR wire was inserted. Pressures and FFR/iFR were then recorded. iFR measurements were performed. iFR Ratio: 1.0 iFR Ratio: 1.01 iFR Ratio: 1.03 The FFR/iFR wire was then removed. XB3 Guide catheter was inserted and engaged into the LCA. runthrough Guide wire was advanced to the Circumflex. 2x12 Adair Drug Eluting stent was inserted. Drug Eluting stent was advanced across the lesion in the circumflex, distal. Angiogram performed post stent deployment. 2.25x12 [place] Emerge Balloon catheter was inserted. Balloon catheter was inserted post stent. Angiogram performed post balloon dilatation. The FFR/iFR wire was inserted. iFR measurements were performed. iFR Ratio: 0.95 The FFR/iFR wire was then removed. Angiogram performed post stent deployment. The arterial sheath was pulled and a TR Band was applied for hemostasis. 10cc of air CORONARY ANGIOGRAPHY DOMINANCE: Right Dominant LEFT MAIN: Angiographically normal LEFT ANTERIOR DESCENDING ARTERY: LAD: Tubular 50% Mid lesion in LAD OM 1: Tubular 30% Mid lesion in MARG1 OM 2: Tubular 30% Mid lesion in MARG1 RIGHT CORONARY ARTERY: RCA: In-Stent Restenosis 40% Mid lesion in RCA, STENT to 40% Calcified 50% Distal lesion in RCA INTERVENTION INFORMATION LESION SITE: RCA (Distal) Lesion Complexity: Non-High/Non-C, lesion length: 10 mm Pre Stenosis: 80 % Pre intervention NIMCO flow: 3 PROCEDURE: Drug Eluting Stent with post dilatation Post Stenosis: 0 % Post intervention NIMCO flow: 3 Lesion Devices: Cordis 6 Fr JR4 100cm Guide Catheter Natty [employer]lif[employer] [place] Coronary FFR Wire Natty [employer] [place] Coronary FFR Wire LESION SITE: Circumflex (Distal) Lesion Devices: Natty [employer] [place] Coronary FFR Wire Cordis 6 Fr XB3.0 100cm Guide Catheter Terumo .014 180cm Runthrough Extra Floppy straight Medtronic 2.00 x 12 MEDINA FRONTIER MELVIN Jc Sci [place] EMERGE MR 2.25x12 BALLOON COMPLICATIONS No Complications PROCEDURE MEDICATIONS Fentanyl 50 mcg IV Versed 1 mg IV Fentanyl 50 mcg IV Versed 2 mg IV Oxygen: 2 L/min via nasal cannula Heparin given IA 07/26/2024 08:43:25 Heparin 5000 unit(s) IV 07/26/2024 08:55:43 Heparin 2000 unit(s) IV 07/26/2024 09:36:27 Nitro 200 mcg IC 07/26/2024 09:27:40 Plavix 300 mg PO 07/26/2024 09:43:23 Verapamil 2.5mg, Ntg 200mcgs, 2000 units of Heparin given IA 07/26/2024 08:43:25 SUMMARY OF HEMODYNAMIC DATA Time AIR REST ECG 07:19:23 AO 147/96 (118) SA 08:48:41 AO 163/97 (124) 09:15:34 Signed By Елена Bhat MD On 07/26/2024 10:05:05 Елена Bhat MD
--- NOTE | 2024-07-26 10:19 | CRPHASE1_ITS ---
Patient Communication Patient Information Former Patient:: Phase I PHII Cardiac Rehab Discussed with Patient:: Yes Guide to Cardiac Rehab Given to Patient:: Yes Cardiac Rehab Facility Choice List Given to Patient:: Yes Communication to Cardiac Rehab Choice Program [facility] CR PHII:: Communication Given to CR Admissions Gate Attendant:: Елена Bhat Phase II Cardiac Rehab:: Yes Sessions:: 36 sessions - 3 days/wk, 12 weeks Cardiac Rehabilitation Info Program Information Cardiac Rehabilitation Program Information: Cardiac Rehab The cardiac rehab team at [facility] consists of highly skilled exercise physiologists, nurses, respiratory therapists and physicians working together with you. Our purpose is to help you have a full recovery and achieve the goals you set for yourself. Over the years many of our patients have returned to activities they assumed they would never do again! We can help restore your confidence and motivation to make lifestyle changes that can have a significant impact on your health and quality of life! We can help answer questions and concerns you may have about exercise, lifestyle, medications, diet, stress and anxiety which are common following a hospitalization. WE monitor ECG and vital signs during exercise and discuss your progress with you and report to your physician(s). Cardiac Rehab is proven to help reduce readmissions, improve functional capacity and lower recurrence of problems with your heart. Our Cardiac Rehab program is Certified by the [place] [employer]-Vascular and Pulmonary [employer] (AACVPR) and Accredited by the [place] [employer] through our [facility]. You can contact us at . We invite you to call us with your questions or to get started in our program. If you have other questions or concerns be sure to ask your physician/provider during your follow-up visit. WE look forward to seeing you!
--- NOTE | 2024-07-26 10:19 | CRPH1.INSTRU ---
General Education Discussed with Patient CAD and cardiac anatomy and function:: Patient communicates acknowledgment Explanation of diagnoses and procedures:: Patient communicates acknowledgment Sign/Symptoms of RI:: Patient communicates acknowledgment Antiplatelet therapy: Patient communicates acknowledgment Proper use of NTG-SL: Patient communicates acknowledgment Emergency procedures and activation of EMS: Patient communicates acknowledgment Compliance of all prescribed medications: Patient communicates acknowledgment Smoking Risk Factors Patient Nicotine/Smoking Risk Factors Are:: Non-smoker Recommendations Recommendations Include:: Previous smoker; encourage continued cessation Response Code Nicotine/Smoking Response Code:: Patient communicates acknowledgment Dyslipidemia Recommendations Recommendations Include:: Lipid profile not available Response Code Dyslipidemia Response Code:: Patient communicates acknowledgment Overweight/Obesity Risk Factors Patient Overweight/Obesity Risk Factors Are:: Obesity - > or = 30 Recommendations Recommendations Include:: Weight loss of 5-10%, Reduced calorie diet and Exercise 5-7 times/week Response Code Overweight/Obesity:: Patient communicates acknowledgment Hypertension Recommendations Recommendations Include:: Maintain BP <130/85 Response Code Hypertension:: Patient communicates acknowledgment Heart Disease Risk Factors Patient Heart Disease Risk Factors Are:: Previous cardiac event Recommendations Recommendations Include:: Educated family members of their risk Response Code Heart Disease Response Code:: Patient communicates acknowledgment Diabetes Risk Factors Patient Diabetes Risk Factors Are:: No documented hx of diabetes Metabolic Syndrome Recommendations Recommendations Include:: Does not meet criteria Sedentary Risk Factors Patient Sedentary Risk Factors Are:: Lack of regular exercise Recommendations Recommendations Include:: Aerobic exercise 5-7 times/week for 20-30 minutes continuously, Benefits of regular exercise, Discussed home walking program and Monitored Outpatient Cardiac Rehab Response Code Sedentary Response Code:: Patient communicates acknowledgment Stress Recommendations Recommendations Include:: Identification of stressors, and assessment of coping skills and Stress management techniques Response Code Stress Response Code:: Patient communicates acknowledgment
[2024-07-26 12:04] LABS: ACT Activated Clotting Time 263 sec (74-137)
[2024-07-26 12:04] LABS: ACT Activated Clotting Time 250 sec (74-137)
== END 2024-07-26 14:57 | disposition home or self-care (01) ==
LOC: CLSP 06:54
PROVIDERS: PCP Family Medicine; Referring Provider Internal Medicine Cardiovascular Disease; Visit Provider Internal Medicine Cardiovascular Disease
DX: R06.09 Other forms of dyspnea (principal); Z79.82 Long term (current) use of aspirin; Z82.49 Family history of ischemic heart disease and other diseases of the circulatory system; Z95.5 Presence of coronary angioplasty implant and graft; E03.9 Hypothyroidism, unspecified; I25.10 Atherosclerotic heart disease of native coronary artery without angina pectoris; I10 Essential (primary) hypertension; E78.2 Mixed hyperlipidemia; I70.211 Atherosclerosis of native arteries of extremities with intermittent claudication, right leg; I36.1 Nonrheumatic tricuspid (valve) insufficiency; R51.9 Headache, unspecified; R53.83 Other fatigue; R06.02 Shortness of breath
CPT/HCPCS: 36415; 71046; 80048; 80061; 85025; 85347; 85610; 85730; 92928; 93005; 93454; 93571; 93572; 99152; 99153; C1874; J7040; Q9967; C1725; C1769; C1884; C1887; C1894; C9600

== ENCOUNTER → 2024-08-12 | Outpatient (CLI) | payer OTHER, SELFPAY ==
--- NOTE | 2024-08-12 12:49 | ECHOD_ITS ---
Reason For Study: Dyspnea/SOB Procedure This was a 2D Doppler, Color Flow transthoracic echocardiogram. Exam performed in department. Left Ventricle Normal size and thickness. The left ventricular ejection fraction is 60 %. Diastolic function is indeterminate. Right Ventricle Normal right ventricle. Atria The left and right atria are normal. Mitral Valve Mild mitral annular calcification. Mild-Moderate (1-2+) mitral valve insufficiency. Tricuspid Valve Moderate (2+) tricuspid valve insufficiency. Right ventricular systolic pressure estimated to be 40 mmHg. Aortic Valve Trisinus/trileaflet aortic valve. Mild diffuse aortic valve thickening. Mild (1+) aortic valve insufficiency. Pulmonic Valve Trivial pulmonic valve insufficiency. Great Vessels Normal sized aortic root. Pericardium/Pleural No pericardial effusion. MMode/2D Measurements & Calculations LVIDd: 4.3 cm IVSd: 1.0 cm LVOT diam: 2.0 cm LVIDs: 3.0 cm LVPWd: 0.87 cm LVOT area: 3.3 cm2 RVDd: 4.0 cm FS: 31.6 % Ao root diam: 3.6 cm LAV(MOD-bp): 50.7 ml LVAd ap4: 28.3 cm2 LAV(MOD-bp) Indexed: 25.6 ml/m2 LVLd ap4: 7.4 cm LAV(MOD-sp2): 49.3 ml EDV(MOD-sp4): 86.9 ml LAV(MOD-sp4): 53.7 ml EDV(sp4-el): 91.3 ml LVAs ap4: 17.6 cm2 LVLs ap4: 6.1 cm ESV(MOD-sp4): 43.6 ml ESV(sp4-el): 42.9 ml EF(MOD-sp4): 49.9 % EF(sp4-el): 53.0 % SV(MOD-sp4): 43.3 ml SV(sp4-el): 48.4 ml Ao sinus diam: 3.2 cm SI(MOD-sp4): 21.9 ml/m2 Ao ST Junction: 2.6 cm LA A4 area: 18.7 cm2 LA dimension(2D): 3.9 cm RA A4 area: 15.3 cm2 Time Measurements MV dec time: 0.18 sec Doppler Measurements & Calculations MV E max haja: 83.4 cm/sec Lat Peak E' Haja: 9.8 cm/sec Med Peak E' Haja: 7.3 cm/sec MV A max haja: 85.8 cm/sec E/E' lat: 8.5 E/E' med: 11.5 MV E/A: 0.97 MV V2 max: 104.1 cm/sec MV P1/2t max haja: 93.9 cm/sec Ao V2 max: 154.1 cm/sec MV max P.3 mmHg MV P1/2t: 68.0 msec Ao max P.5 mmHg MV V2 mean: 59.5 cm/sec MV dec slope: 404.0 cm/sec2 Ao V2 mean: 107.3 cm/sec MV mean P.6 mmHg Ao mean P.2 mmHg MV V2 VTI: 31.4 cm MVA(P1/2t): 3.2 cm2 Ao V2 VTI: 36.5 cm MVA(VTI): 2.6 cm2 AV (velocity ratio): 0.68 ERNIE(I,D): 2.2 cm2 ERNIE(V,D): 2.2 cm2 AI max haja: 431.2 cm/sec LV V1 max: 103.7 cm/sec MR max haja: 555.5 cm/sec AI max P.4 mmHg LV V1 max P.3 mmHg MR max P.4 mmHg LV V1 mean P.6 mmHg MR mean haja: 439.4 cm/sec AI dec slope: 161.6 cm/sec2 LV V1 mean: 75.3 cm/sec MR mean P.5 mmHg AI P1/2t: 781.7 msec LV V1 VTI: 24.9 cm MR VTI: 222.4 cm SV(LVOT): 81.0 ml PA V2 max: 85.9 cm/sec TR max haja: 285.7 cm/sec TR max P.7 mmHg ECHO/Echo Complete Interpretation Summary The left ventricular ejection fraction is 60 %. Diastolic function is indeterminate. Mild-Moderate (1-2+) mitral valve insufficiency. Moderate (2+) tricuspid valve insufficiency. Right ventricular systolic pressure estimated to be 40 mmHg. Mild (1+) aortic valve insufficiency. Ordering Physician: Елена Bhat Referring Physician: Елена Bhat Performed By: Joe Price RCS
== END | disposition home or self-care (01) ==
PROVIDERS: PCP Family Medicine; Referring Provider Internal Medicine Cardiovascular Disease; Visit Provider Internal Medicine Cardiovascular Disease
DX: R94.39 Abnormal result of other cardiovascular function study (principal); R06.09 Other forms of dyspnea; I10 Essential (primary) hypertension; I36.1 Nonrheumatic tricuspid (valve) insufficiency; I34.0 Nonrheumatic mitral (valve) insufficiency; I35.1 Nonrheumatic aortic (valve) insufficiency; R06.02 Shortness of breath
CPT/HCPCS: 93306

== ENCOUNTER → 2024-09-28 | Outpatient (CLI) | payer OTHER, SELFPAY ==
--- NOTE | 2024-09-28 10:49 | ART_ITS ---
Reason For Study: Claudication Procedure A bilateral lower extremity continuous wave Doppler with analog waveform analysis,segmental pressures,and ankle brachial indexes with exercise. Left Segmental Pressures Left brachial= 138mmHg. Left low thigh = 144mmHg. Left calf = 108mmHg. Left posterior tibial artery = 125mmHg. Left dorsalis pedis artery = 120mmHg. Left digit = 107 mmHg. The left dorsalis pedis waveforms are triphasic. The left posterior tibial artery waveforms are biphasic. Right Segmental Pressures Right brachial= 132mmHg. Right high thigh = 195mmHg. Right low thigh = 131mmHg. Right calf = 110mmHg. Right posterior tibial artery = 98mmHg. Right dorsalis pedis artery = 96mmHg. Right digit = 82 mmHg. The right dorsalis pedis waveforms are monophasic. The right posterior tibial artery waveforms are monophasic. Indices The right ankle brachial index by the dorsalis pedis is 0.70. The right ankle brachial index by the posterior tibial artery is 0.71. The right post exercise ankle brachial index is 0.37. The right digital-brachial index is 0.59. The left ankle brachial index by the dorsalis pedis is 0.87. The left ankle brachial index by the posterior tibial artery is 0.91. The left post exercise ankle brachial index is 0.95. The left digital-brachial index is 0.78. VL/Lower Ext Art Exam w/ Exercise Interpretation Summary Right [place] 0.71, moderate arterial insufficiency. Doppler/PVR waveforms and segm ental pressures reveal proximal SFA, distal SFA/popliteal disease. Left [place] 0.91, mild arterial insufficiency. Doppler/PVR waveforms and segmental pressures reveal distal SFA/popliteal disease. Ordering Physician: Tran Gerardo Referring Physician: Piotr Tay MD Performed By: Lenore Iniguez RVT
== END | disposition home or self-care (01) ==
LOC: CVS 10:12
PROVIDERS: PCP Family Medicine; Referring Provider Physician Assistant; Visit Provider Physician Assistant
DX: I70.211 Atherosclerosis of native arteries of extremities with intermittent claudication, right leg (principal)
CPT/HCPCS: 93924

== ENCOUNTER → 2024-10-21 | Outpatient (CLI) | payer OTHER, SELFPAY ==
--- NOTE | 2024-10-21 11:38 | BI_ITS ---
PROCEDURE: SCRN MAMM (CAD)W/LAVERN BILAT REASON FOR EXAM: F, Age 59 y/o, routine mammogram. Sister with breast cancer. TECHNIQUE: Bilateral screening digital breast tomosynthesis with 2D and 3D images. Computer aided detection. COMPARISON: Prior exam(s) dating back to September 23, 2023.. FINDINGS: The breasts are heterogeneously dense which may obscure small masses. Stable examination. No suspicious masses, areas of developing architectural distortion, or suspicious calcifications. BI/SCRN MAMM (CAD)W/LAVERN BILAT IMPRESSION: BI-RADS 1: NEGATIVE. RECOMMEND ANNUAL MAMMOGRAPHIC SCREENING. Follow-up code: Routine Follow-up The patient will be notified of the results by letter. Reading Location: [place] [id number]
== END | disposition home or self-care (01) ==
LOC: OPBI 11:35
PROVIDERS: PCP Family Medicine; Referring Provider Family Medicine; Visit Provider Family Medicine
DX: Z12.31 Encounter for screening mammogram for malignant neoplasm of breast (principal); Z80.3 Family history of malignant neoplasm of breast
CPT/HCPCS: 77063; 77067

== ENCOUNTER → 2024-10-24 | Outpatient (CLI) | payer OTHER, SELFPAY ==
[2024-10-24 16:02] LABS: Vitamin D,25 Hydroxy 30.1 ng/mL
[2024-10-24 16:19] LABS: ALB/GLOB Ratio 1.4 RATIO (0.9-2.4); AST(SGOT) 16 U/L (15-37); Alanine Aminotransfer ALT/SGPT 24 U/L (13-56); Albumin, Serum 4.2 g/dL (3.2-5.0); Alkaline Phosphatase 79 U/L (45-117); Anion Gap 7 (5-15); BUN 27 mg/dL (7-18); BUN/Creat Ratio 27.7 RATIO (10-20); Calcium,Total 9.7 mg/dL (8.5-10.1); Chloride 105 mmol/L (98-107); Cholesterol 154 mg/dL (200); Creatinine, Serum 0.97 mg/dL (0.55-1.02); EST Glomerular Filtration Rate 62 mL/min (>60); Est Glom Filt Rate - Afr Amer 75 mL/min (>60); Globulin 3.1 g/dL (2.2-4.2); Glucose 97 mg/dL (74-106); High Density Lipoprotein 84 mg/dL; Potassium 3.4 mmol/L (3.5-5.1); Protein, Total 7.3 g/dL (6.4-8.2); Sodium Level 138 mmol/L (136-145); T4 Free Direct 1.57 ng/dL (0.76-1.46); Triglycerides 56 mg/dL; Very Low Density Lipoprotein 11 mg/dL (5-40)
[2024-10-24 16:39] LABS: Absolute Lymphocyte Count 1.52 X10^3/uL (0.83-4.51); Absolute Neutrophil Count 2.6 X10^3/uL (2.0-7.7); Basophil# 0.05 X10^3/uL; Basophil% 1.1 % (0-1); Eosinophil# 0.06 X10^3/uL; Eosinophils% 1.3 % (0-5); Hematocrit 41.4 % (37-47); Lymphocyte # 1.52 X10^3/ul (0.83-4.51); Lymphocyte % 32.9 % (19-41); Mean Corp Hgb Conc 33.8 g/dL (32-36); Mean Corpuscular Hgb 32.2 pg (27.0-32.0); Mean Corpuscular Volume 95.2 fL (81-99); Mean Platelet Vol. 10.5 fl (6.2-12.0); Monocyte# 0.39 X10^3/uL; Monocyte% 8.4 % (0-10); NRBC Flagged by Analyzer 0 % (0-5); Neutrophil # 2.59 X10^3/uL (2.7-7.7); Neutrophil % 56.1 % (47-70); Platelet Count 293 K/mm3 (150-450); RBC Distribution Width CV 12.4 % (11.6-14.6); RBC Distribution Width SD 43.3 fl (35.1-43.9); Red Blood Count 4.35 M/mm3 (4.2-5.4); White Blood Count 4.6 K/mm3 (4.4-11.0)
== END | disposition home or self-care (01) ==
LOC: MFPLAB 11:08
PROVIDERS: PCP Family Medicine; Referring Provider Family Medicine; Visit Provider Family Medicine
DX: Z00.00 Encounter for general adult medical examination without abnormal findings (principal); I10 Essential (primary) hypertension; E03.9 Hypothyroidism, unspecified; I73.9 Peripheral vascular disease, unspecified
CPT/HCPCS: 36415; 80053; 80061; 82306; 84439; 84443; 85025

== ENCOUNTER → 2025-02-10 | Outpatient (CLI) | payer OTHER, SELFPAY ==
[2025-02-10 10:19] LABS: Cholesterol 186 mg/dL (<=200); High Density Lipoprotein 66 mg/dL; Low Density Lipoprotein Calc. 99 mg/dL; Triglycerides 105 mg/dL; Very Low Density Lipoprotein 21 mg/dL (5-40); cholesterol:hdl ratio screen 2.82
== END | disposition home or self-care (01) ==
LOC: LAB 08:55
PROVIDERS: PCP Family Medicine; Referring Provider Internal Medicine Cardiovascular Disease; Visit Provider Internal Medicine Cardiovascular Disease
DX: E78.2 Mixed hyperlipidemia (principal)
CPT/HCPCS: 36415; 80061

== ENCOUNTER → 2025-07-21 | Outpatient (CLI) | payer OTHER, SELFPAY ==
[2025-07-21 12:10] LABS: Hematocrit 43.0 % (37-47); Hemoglobin 14.9 g/dL (12.0-15.0); Immature Granulocytes Count 0.020 X10^3/uL (0.0-0.0); Mean Corp Hgb Conc 34.7 g/dL (32-36); Mean Corpuscular Volume 93.7 fL (81-99); Mean Platelet Vol. 9.7 fl (6.2-12.0); NRBC Flagged by Analyzer 0 % (0-5); Platelet Count 295 K/mm3 (150-450); RBC Distribution Width CV 13.2 % (11.6-14.6); RBC Distribution Width SD 45.1 fl (35.1-43.9); Red Blood Count 4.59 M/mm3 (4.2-5.4); White Blood Count 5.2 K/mm3 (4.4-11.0)
[2025-07-21 12:51] LABS: AST(SGOT) 23 U/L (<=31); Alanine Aminotransfer ALT/SGPT 27 U/L (<=34); Albumin, Serum 4.4 g/dL (3.4-4.8); Alkaline Phosphatase 78 U/L (35-104); Anion Gap 9 (5-15); BUN 26 mg/dL (4-19); BUN/Creat Ratio 26.9 RATIO (10-20); Bilirubin, Direct 0.14 mg/dL (0.00-0.30); Calcium,Total 9.9 mg/dL (7.6-11.0); Carbon Dioxide 26.8 mmol/L (21.0-32.0); Chloride 104 mmol/L (98-108); Cholesterol 352 mg/dL (<=200); Free T3 1.5 pg/mL (2.18-3.98); Globulin 2.7 g/dL (2.2-4.2); Glucose 101 mg/dL (70-99); Low Density Lipoprotein Calc. 255 mg/dL; Potassium 3.9 mmol/L (3.3-5.1); Triglycerides 116 mg/dL; Very Low Density Lipoprotein 23 mg/dL (5-40); cholesterol:hdl ratio screen 4.55
== END | disposition home or self-care (01) ==
LOC: LAB 11:52
PROVIDERS: PCP Family Medicine; Referring Provider Nurse Practitioner Gerontology; Visit Provider Nurse Practitioner Gerontology
DX: E78.2 Mixed hyperlipidemia (principal); I10 Essential (primary) hypertension; E03.9 Hypothyroidism, unspecified
CPT/HCPCS: 36415; 80048; 80061; 80076; 84439; 84443; 84481; 85025